=== PATIENT | male | born 1960 | race Native Hawaiian/Other Pacific Islander ===

== ENCOUNTER 2017-10-28 11:58 | Inpatient (IN) | payer OTHER ==
[~2017-10-28] VITALS: Ht 165.1 cm; Wt 78.0 kg
[~2017-10-28 11:58] MED LIST: CEPH500C3 PO; EMPA1TAB3 PO; GLIM4TAB PO; GLUC1000 PO; LORT5TAB PO
[2017-10-28 12:00] VITALS: BP 182/84; PULSE 63; RESP 20; TEMP 97.9; O2SAT 99
--- NOTE | 2017-10-28 12:33 | PD ---
Physical Exam Time Seen by Provider: 12:30 Narrative 57yo M c/o sternal chest pain x 2hours. Intermittent. Denies SOB. Pain is worse with deep breath. No radiation of pain. Denies recent illness illness. Hx diabetes. Denies anticoagulants. Denies N,V. Patient seen in triage. VS reviewed. Awaiting bed placement. See next providers note for final patient disposition. Data Data Last Documented VS Vital Signs Date Time Temp Pulse Resp B/P (MAP) Pulse Ox O2 Delivery O2 Flow Rate FiO2 10/28/17 12:00 97.9 63 20 182/84 (116) 99 Room Air MDM Supervised Visit with CHANDRA: Karla Potts Oct 28, 2017 12:33
[2017-10-28] MEDS ORDERED: SODIUM CHLORIDE 0.9% FLUSH 10 ML FLUSH IVF PRN ×2 (12:45→13:15)
--- NOTE | 2017-10-28 12:56 | RADRPT ---
EXAM DATE/TIME: 10/28/2017 12:47 [facility] COMPARISON: No previous studies available for comparison. INDICATIONS : Chest pain. MEDICAL HISTORY : None. SURGICAL HISTORY : None. ENCOUNTER: Initial ACUITY: 1 day PAIN SCORE: 4/10 LOCATION: Bilateral chest FINDINGS: Single AP view of the chest. The lungs are clear. Cardiomediastinal silhouette within normal limits. No evidence of pleural effusion or pneumothorax. CONCLUSION: No acute cardiopulmonary disease identified. Leo Velazquez MD on October 28, 2017 at 12:53 Board Certified Radiologist. This report was verified electronically.
[2017-10-28 13:07] LABS: AUTOMATED NEUTROPHIL # 4.2 TH/MM3 (1.8-7.7); BASOPHIL % 0.5 % (0.0-2.0); EOSINOPHIL # 0.3 TH/MM3 (0-0.4); EOSINOPHIL % 3.5 % (0.0-4.0); LYMPH % 35.1 % (9.0-44.0); LYMPHOCYTE # 2.8 TH/MM3 (1.0-4.8); MEAN CELL VOLUME 87.9 FL (80.0-100.0); MEAN CORPUSCULAR HEMOGLOBIN 30.5 PG (27.0-34.0); MEAN CORPUSCULAR HGB CONC 34.7 % (32.0-36.0); MEAN PLATELET VOLUME 8.3 FL (7.0-11.0); MONOCYTE # 0.6 TH/MM3 (0-0.9); NEUT % 52.9 % (16.0-70.0); PLATELET COUNT 207 TH/MM3 (150-450); RED BLOOD COUNT 5.24 MIL/MM3 (4.50-5.90); WHITE BLOOD COUNT 7.9 TH/MM3 (4.0-11.0)
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
[2017-10-28] MEDS ORDERED: SODIUM CHLORID 0.9% 500 ML INJ 500 ML IV ONE (13:15)
[2017-10-28] MEDS ORDERED: MORPHINE SULFATE 2 MG/ML INJ IV PUSH ONE (13:15)
[2017-10-28] MEDS ORDERED: GLIM4TAB PO (13:15)
[2017-10-28] MEDS ORDERED: ONDANSETRON HCL 4 MG/2 ML VIAL IV PUSH ONE (13:15)
[2017-10-28] MEDS ORDERED: ASPIRIN 81 MG CHEW TAB PO ONE (13:15)
[2017-10-28] MEDS ORDERED: METF1000 PO (13:15)
[2017-10-28] MEDS ORDERED: EMPA1TAB PO (13:15)
[2017-10-28 13:16] VITALS: BP 165/90; PULSE 56; RESP 21; O2SAT 100
[2017-10-28] MEDS ORDERED: EMPA1TAB3 PO (13:16)
[2017-10-28 13:17] VITALS: O2SAT 99
[2017-10-28 13:17] LABS: BICARBONATE 28.1 MEQ/L (21.0-32.0); BLOOD UREA NITROGEN 14 MG/DL (7-18); CALCIUM 9.8 MG/DL (8.5-10.1); CHLORIDE 105 MEQ/L (98-107); CREATININE 0.91 MG/DL (0.60-1.30); GLOMERULAR FILTRATION RATE 86 ML/MIN (>89); GLUCOSE,RANDOM 129 MG/DL (74-106); MAGNESIUM 2.1 MG/DL (1.5-2.5); SODIUM (NA) 137 MEQ/L (136-145)
[2017-10-28 13:20] LABS: TROPONIN I LESS THAN 0.02 NG/ML (0.02-0.05)
[2017-10-28] MEDS: NITROGLYCERIN 0.4 MG SL 25 TABS/BTL SL SCH ×3 (13:20→13:37)
[2017-10-28 13:22] LABS: PROTHROMBIN TIME - PATIENT 10.3 SEC (9.8-11.6)
[2017-10-28] MEDS ORDERED: IOHEXOL 350 MG/ML 50 ML BTL (for Cath Lab) OTHER ONE (13:57)
[2017-10-28] MEDS ORDERED: ONDANSETRON HCL 4 MG/2 ML VIAL IV PUSH PRN (15:15)
[2017-10-28] MEDS ORDERED: ACETAMINOPHEN 500 MG CPLT PO PRN (15:15)
[2017-10-28] MEDS ORDERED: NITROGLYCERIN 0.4 MG SL 25 TABS/BTL SL PRN (15:15)
[2017-10-28 15:33] VITALS: O2SAT 99
--- NOTE | 2017-10-28 16:24 | HHI.HP ---
HPI Primary Care Physician Venancio Bailey MD Chief Complaint Chest pain History of Present Illness 57 year old male with history of Type 2 noninsulin diabetes presents to ER for further evaluation of chest pain. Awakening at 5am, feeling fine, completed morning prayer, followed by breakfast at 6am. Decided to go back to sleep, awakening around 1030am. Upon awakening experience quick onset, sharp epigastric pain. Radiation "straight up" (pointing from epigastric area to midsternum). No associated symptoms of nausea, vomiting, dyspnea, or diaphoresis. Duration waxed and waned in intensity for approximately 1.5 hours. Hurt to take a deep breath during this time. Denies similar pain in the past. No known precipitating or relieving factors. Endorses he physically active and attempted exercising on treadmill in hopes discomfort would resolve. Discomfort worsen while on treadmill, therefore stopped exercising. Notified his son (who is a medical student) who instructed father to come to ER for further evaluation. Currently discomfort has completed resolved. Review of Systems General: No fatigue,weakness, fever, chills, recent illness, or change in appetite. Has been in his general state of health, reporting he "never gets sick." HEENT: No DOWNING, no vision changes, no nasal congestion or drainage, no dysphasia CV: As stated above. No current chest pain or pressure. No intermittent leg pain RESP: No SOB, cough, wheeze, or recent respiratory illness GI: No nausea, vomiting, bowel changes, or history of acid reflex. : No dysuria, urgency, frequency. History of kidney stones EXT: No lower leg edema, no paraesthesias MS: No discomfort, change in ROM, injury, or recent trauma. NEURO: No change in memory, dizziness, difficulty with balance, LOC, motor/ sensory deficits PSYCH: No anxiety, depression SKIN: No rashes, no concerning lesions Past Family Social History Allergies: Coded Allergies: No Known Allergies (Unverified Allergy, Unknown, 10/28/17) Past Medical History Diabetes type 2 (non-insulin dependent), gallstones, kidney stones Past Surgical History Cholecystectomy, lithotripsies Reported Medications Reported Meds & Active Scripts Active Reported Jardiance (Empagliflozin) 25 Mg Tab 25 Mg PO DAILY Glimepiride 4 Mg Tab 4 Mg PO BIDAC Metformin (Metformin HCl) 1,000 Mg Tab 1,000 Mg PO BIDPC Denies being on an CHEYANNE inhibitor or a cholesterol medication Active Ordered Medications Current Medications Medications (Trade) Dose Ordered Sig/Shereen Route Start Time Stop Time Status Last Admin (NS Flush) 2 ml UNSCH PRN IVF 10/28/17 12:45 (NS Flush) 2 ml UNSCH PRN IVF 10/28/17 13:15 (Tylenol) 500 mg Q4H PRN PO 10/28/17 15:15 (Zofran Inj) 4 mg Q6H PRN IV PUSH 10/28/17 15:15 (Nitrostat Sl) 0.4 mg Q5M PRN SL 10/28/17 15:15 (Aspirin) 325 mg DAILY PO 10/29/17 09:00 Family History Noncontributory for early onset cardiovascular disease. Social History Known diabetes. Denies CAD, hypertension or hyperlipidemia. Denies ever taking a cholesterol medication. Lifelong nonsmoker. Denies any alcohol or illegal drug use. . 2 grown sons. 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 Endorses active lifestyle, exercises on treadmill for approx. 20 minutes nightly. Past cardiac testing None Physical Exam Vital Signs Vital Signs Date Time Temp Pulse Resp B/P (MAP) Pulse Ox O2 Delivery O2 Flow Rate FiO2 10/28/17 13:17 (115) 99 Room Air 10/28/17 13:16 56 21 165/90 (115) 100 10/28/17 13:00 18 Room Air 10/28/17 12:00 97.9 63 20 182/84 (116) 99 Room Air Physical Exam GENERAL: Alert WN, WD, NAD, very pleasant, male. HEAD: NC, AT EYES: Sclera clear, conjunctiva without injection, pupils equal and round ENT: Mucous membranes pink and moist NECK: Supple, no masses, trachea midline CV: Regular bradycardiac rhythm, without murmur, rub, gallop, no JVD, S1-S2 no S3-S4. No carotid bruits. Chest wall nontender with palpation. RESP: Clear lungs throughout bilateral, no crackles, wheeze, rhonchi, symmetrical chest rise, nonlabored, able to speak in full sentences ABD: Soft, NT, ND, no masses, positive bowel tones EXT: Pulses +24, no dependent edema MS: Normal tone 4 extremities, nontender, no obvious deformities, full range of motion NEURO: CN II through CN XII grossly intact, motor strength 5/5 PSYCH: A+O 3, pleasant affect, appropriate speech, mood, insight and judgment SKIN: Normal turgor, normal texture, no lesions, no rashes, brisk cap refill, even hair distribution Laboratory Laboratory Tests Test 10/28/17 12:42 White Blood Count 7.9 Red Blood Count 5.24 Hemoglobin 16.0 Hematocrit 46.0 Mean Corpuscular Volume 87.9 Mean Corpuscular Hemoglobin 30.5 Mean Corpuscular Hemoglobin Concent 34.7 Red Cell Distribution Width 14.0 Platelet Count 207 Mean Platelet Volume 8.3 Neutrophils (%) (Auto) 52.9 Lymphocytes (%) (Auto) 35.1 Monocytes (%) (Auto) 8.0 Eosinophils (%) (Auto) 3.5 Basophils (%) (Auto) 0.5 Neutrophils # (Auto) 4.2 Lymphocytes # (Auto) 2.8 Monocytes # (Auto) 0.6 Eosinophils # (Auto) 0.3 Basophils # (Auto) 0.0 CBC Comment DIFF FINAL Differential Comment Prothrombin Time 10.3 Prothromb Time International Ratio 1.0 Activated Partial Thromboplast Time 29.4 Blood Urea Nitrogen 14 Creatinine 0.91 Random Glucose 129 Calcium Level 9.8 Magnesium Level 2.1 Sodium Level 137 Potassium Level 4.3 Chloride Level 105 Carbon Dioxide Level 28.1 Anion Gap 4 Estimat Glomerular Filtration Rate 86 Total Creatine Kinase 643 Creatine Kinase MB 6.0 Creatine Kinase MB % 0.9 Troponin I LESS THAN 0.02 Result Diagram: 10/28/17 1242 10/28/17 1242 Imaging Last 48 hours Impressions Chest X-Ray 10/28/17 1233 Signed Impressions: Service Date/Time: Saturday, October 28, 2017 12:47 - CONCLUSION: No acute cardiopulmonary disease identified. Leo Velazquez MD Course EKG NSB, normal axis, J point elevation V1, V2, V3 may represent early repolarization Caprini VTE Risk Assessment Caprini VTE Risk Assessment: No/Low Risk (score <= 1) Caprini Risk Assessment Model Point Value = 1 Point Value = 2 Point Value = 3 Point Value = 5 Age 41-60 Minor surgery BMI > 25 kg/m2 Swollen legs Varicose veins or History of unexplained or recurrent spontaneous Oral contraceptives or hormone replacement Sepsis (< 1 month) Serious lung disease, including pneumonia (< 1 month) Abnormal pulmonary function Acute myocardial infarction Congestive heart failure (< 1 month) History of inflammatory bowel disease Medical patient at bed rest Age 61-74 Arthroscopic surgery Major open surgery (> 45 min) Laparoscopic surgery (> 45 min) Malignancy Confined to bed (> 72 hours) Immobilizing plaster cast Central venous access Age >= 75 History of VTE Family history of VTE Factor V Leiden Prothrombin [id number] Lupus anticoagulant Anticardiolipin antibodies Elevated serum homocysteine Heparin-induced thrombocytopenia Other congenital or acquired thrombophilia Stroke (< 1 month) Elective arthroplasty Hip, pelvis, or leg fracture Acute spinal cord injury (< 1 month) Prophylaxis Regimen Total Risk Factor Score Risk Level Prophylaxis Regimen 0-1 Low Early ambulation 2 Moderate Order ONE of the following: *Sequential Compression Device (SCD) *Heparin 5000 units SQ BID 3-4 Higher Order ONE of the following medications: *Heparin 5000 units SQ TID *Enoxaparin/Lovenox 40 mg SQ daily (WT < 150 kg, CrCl > 30 mL/min) *Enoxaparin/Lovenox 30 mg SQ daily (WT < 150 kg, CrCl > 10-29 mL/min) *Enoxaparin/Lovenox 30 mg SQ BID (WT < 150 kg, CrCl > 30 mL/min) AND/OR *Sequential Compression Device (SCD) 5 or more Highest Order ONE of the following medications: *Heparin 5000 units SQ TID (Preferred with Epidurals) *Enoxaparin/Lovenox 40 mg SQ daily (WT < 150 kg, CrCl > 30 mL/min) *Enoxaparin/Lovenox 30 mg SQ daily (WT < 150 kg, CrCl > 10-29 mL/min) *Enoxaparin/Lovenox 30 mg SQ BID (WT < 150 kg, CrCl > 30 mL/min) AND *Sequential Compression Device (SCD) Assessment and Plan Assessment and Plan #1 Chest pain-admitted to chest pain center. Serial EKGs and cardiac enzymes protocol ordered. Will be seen and evaluated by Dr Dallas Dickson. Discussed possible cardiac testing after assessment by jewel stripper and further orders. Patient is agreeable to plan of care. #2 Diabetes type 2 non-insulin dependent-encouraged him to discuss with his primary care provider starting on an CHEYANNE inhibitor and Statin therapy per current recommended diabetic guidelines, education on how and why both medications are beneficial. Will reinforce upon discharge. 1800-Exercise stress testing positive for significant ST depressions inferiorly , anterolaterally at peak and minimal st depressions in recovery. Dr. Dickson aware and also reviewed stress test. Admit to hospitalist and cardiology diamond polisher. Due to patient bradycardiac rhythm will not order nitro paste or beta dionne at this time. Discussed plan of care with patient and family. All agreeable to plan of care. Leah Cameron Oct 28, 2017 16:24
--- NOTE | 2017-10-28 17:02 | PD.CARD.PN ---
Subjective Subjective Remarks PATIENT SEEN AND EXAMINED AND DISCUSSED WITH RETAIL CUSTOMER SERVICE SPECIALIST Chest pain as described in hard working man with diabetes, HTN and probable hyperlipidemia. Exercises regularly so fit for ETT Objective Medications Current Medications Medications (Trade) Dose Ordered Sig/Shereen Route Start Time Stop Time Status Last Admin (NS Flush) 2 ml UNSCH PRN IVF 10/28/17 12:45 (NS Flush) 2 ml UNSCH PRN IVF 10/28/17 13:15 (Tylenol) 500 mg Q4H PRN PO 10/28/17 15:15 (Zofran Inj) 4 mg Q6H PRN IV PUSH 10/28/17 15:15 (Nitrostat Sl) 0.4 mg Q5M PRN SL 10/28/17 15:15 (Aspirin) 325 mg DAILY PO 10/29/17 09:00 Vital Signs / I&O Vital Signs Date Time Temp Pulse Resp B/P (MAP) Pulse Ox O2 Delivery O2 Flow Rate FiO2 10/28/17 13:17 (115) 99 Room Air 10/28/17 13:16 56 21 165/90 (115) 100 10/28/17 13:00 18 Room Air 10/28/17 12:00 97.9 63 20 182/84 (116) 99 Room Air Physical Exam Neck without JVD or bruits Chest Clear to auscultation with no RWR CV RSR with no GRM Ext no CCE EKG probably early repol and no change from prior Labs reviewed Laboratory Laboratory Tests Test 10/28/17 12:42 10/28/17 16:10 White Blood Count 7.9 TH/MM3 Red Blood Count 5.24 MIL/MM3 Hemoglobin 16.0 GM/DL Hematocrit 46.0 % Mean Corpuscular Volume 87.9 FL Mean Corpuscular Hemoglobin 30.5 PG Mean Corpuscular Hemoglobin Concent 34.7 % Red Cell Distribution Width 14.0 % Platelet Count 207 TH/MM3 Mean Platelet Volume 8.3 FL Neutrophils (%) (Auto) 52.9 % Lymphocytes (%) (Auto) 35.1 % Monocytes (%) (Auto) 8.0 % Eosinophils (%) (Auto) 3.5 % Basophils (%) (Auto) 0.5 % Neutrophils # (Auto) 4.2 TH/MM3 Lymphocytes # (Auto) 2.8 TH/MM3 Monocytes # (Auto) 0.6 TH/MM3 Eosinophils # (Auto) 0.3 TH/MM3 Basophils # (Auto) 0.0 TH/MM3 CBC Comment DIFF FINAL Differential Comment Prothrombin Time 10.3 SEC Prothromb Time International Ratio 1.0 RATIO Activated Partial Thromboplast Time 29.4 SEC Blood Urea Nitrogen 14 MG/DL Creatinine 0.91 MG/DL Random Glucose 129 MG/DL Calcium Level 9.8 MG/DL Magnesium Level 2.1 MG/DL Sodium Level 137 MEQ/L Potassium Level 4.3 MEQ/L Chloride Level 105 MEQ/L Carbon Dioxide Level 28.1 MEQ/L Anion Gap 4 MEQ/L Estimat Glomerular Filtration Rate 86 ML/MIN Total Creatine Kinase 643 U/L Creatine Kinase MB 6.0 NG/ML Creatine Kinase MB % 0.9 % Troponin I LESS THAN 0.02 NG/ML Imaging Last 24 hours Impressions Chest X-Ray 10/28/17 1233 Signed Impressions: Service Date/Time: Saturday, October 28, 2017 12:47 - CONCLUSION: No acute cardiopulmonary disease identified. Leo Velazquez MD Assessment and Plan Problem List: (1) Chest pain in adult ICD Codes: R07.9 - Chest pain, unspecified Status: Acute Plan: Remains pain free and anxious to get home. Will ETT with second set of negative enzymes. Needs OP FU for diabetes, HTN and lipids Dallas Dickson MD Oct 28, 2017 17:02
[2017-10-28 17:07] LABS: TROPONIN I LESS THAN 0.02 NG/ML (0.02-0.05)
[2017-10-28 18:14] VITALS: BP 118/73; PULSE 88; RESP 20; TEMP 98.6; O2SAT 98
[2017-10-28] MEDS ORDERED: DEXTROSE 50% IN WATER 50 ML VIAL(D50) IV PUSH PRN (18:15)
[2017-10-28] MEDS ORDERED: GLUCAGON 1 MG/ML VIAL OTHER PRN (18:15)
[2017-10-28 19:13] LABS: TROPONIN I LESS THAN 0.02 NG/ML (0.02-0.05)
[2017-10-28] MEDS: INSULIN ASPART SUPPLEMENTAL SCALE SQ SCH (20:02)
[2017-10-28] MEDS: PANTOPRAZOLE SOD 40 MG DELAYED RELEASE TAB PO SCH (20:07)
[2017-10-28 20:51] VITALS: BP 133/73; PULSE 68; RESP 18; TEMP 98; O2SAT 98
[2017-10-29] VITALS (12 sets, daily range): BP systolic 119–159; BP diastolic 61–86; PULSE 51–75; RESP 16–18; TEMP 96.2–98.7; O2SAT 94–98
--- NOTE | 2017-10-29 07:43 | PD.CONS ---
HPI Service cardiology Consult Requested By Reason for Consult chest pain Primary Care Physician Venancio Bailey MD History of Present Illness 57 year old male with history of Type 2 noninsulin diabetes presents to ER for further evaluation of chest pain. Awakening at 5am, feeling fine, completed morning prayer, followed by breakfast at 6am. Decided to go back to sleep, awakening around 1030am. Upon awakening experience quick onset, sharp epigastric pain. Radiation "straight up" (pointing from epigastric area to midsternum). No associated symptoms of nausea, vomiting, dyspnea, or diaphoresis. Duration waxed and waned in intensity for approximately 1.5 hours. Hurt to take a deep breath during this time. Denies similar pain in the past. No known precipitating or relieving factors. Endorses he physically active and attempted exercising on treadmill in hopes discomfort would resolve. Discomfort worsen while on treadmill, therefore stopped exercising. Notified his son (who is a medical student) who instructed father to come to ER for further evaluation. Currently discomfort has completed resolved. Review of Systems Consitutional: DENIES: Fatigue, Fever, Chills, Weight gain, Weight loss Respiratory: DENIES: Cough, Snoring, Shortness of breath, Wheezing, Sputum production Cardiovascular: DENIES: Palpitations, Syncope, Tachycardia Gastrointestinal: DENIES: Nausea, Vomiting, Change in bowel habits, Reflux, Bloody stools, Melena Past Family Social History Allergies: Coded Allergies: No Known Allergies (Unverified Allergy, Unknown, 10/28/17) Past Medical History DMII Past Surgical History Cholecystectomy, lithotripsies Reported Medications Reported Meds & Active Scripts Active Reported Jardiance (Empagliflozin) 25 Mg Tab 25 Mg PO DAILY Glimepiride 4 Mg Tab 4 Mg PO BIDAC Metformin (Metformin HCl) 1,000 Mg Tab 1,000 Mg PO BIDPC Active Ordered Medications Current Medications Medications (Trade) Dose Ordered Sig/Shereen Route Start Time Stop Time Status Last Admin (NS Flush) 2 ml UNSCH PRN IVF 10/28/17 12:45 (NS Flush) 2 ml UNSCH PRN IVF 10/28/17 13:15 (Tylenol) 500 mg Q4H PRN PO 10/28/17 15:15 (Zofran Inj) 4 mg Q6H PRN IV PUSH 1/14/18 15:15 (Nitrostat Sl) 0.4 mg Q5M PRN SL 10/28/17 15:15 (Aspirin) 325 mg DAILY PO 10/29/17 09:00 (D50w (Vial) Inj) 50 ml UNSCH PRN IV PUSH 10/28/17 18:15 (Glucagon Inj) 1 mg UNSCH PRN OTHER 10/28/17 18:15 (NovoLOG SUPPLEMENTAL SCALE) 1 ACHS SLIDING SCALE SQ 10/28/17 21:00 (Protonix) 40 mg DAILY PO 10/28/17 18:30 10/28/17 20:07 Family History non-contributory Social History no tobacco, etoh or illicit drug use Physical Exam Vital Signs Vital Signs Date Time Temp Pulse Resp B/P (MAP) Pulse Ox O2 Delivery O2 Flow Rate FiO2 10/29/17 07:34 98.4 59 18 130/72 (91) 97 10/29/17 05:19 98.7 64 18 138/74 (95) 94 10/29/17 00:17 98.0 67 18 127/61 (83) 97 10/28/17 20:51 98.0 68 18 133/73 (93) 98 10/28/17 18:14 98.6 88 20 118/73 (88) 98 10/28/17 17:22 (115) 10/28/17 15:33 99 21 10/28/17 13:17 (115) 99 Room Air 10/28/17 13:16 56 21 165/90 (115) 100 10/28/17 13:00 18 Room Air 10/28/17 12:00 97.9 63 20 182/84 (116) 99 Room Air Physical Exam GENERAL: SKIN: Warm and dry. HEAD: Atraumatic. Normocephalic. EYES: Pupils equal and round. ENT: No nasal bleeding or discharge. NECK: Trachea midline. No JVD. CARDIOVASCULAR: Regular rate and rhythm. no murmurs RESPIRATORY: No accessory muscle use. Clear to auscultation. Breath sounds equal bilaterally. GASTROINTESTINAL: Abdomen soft, non-tender, nondistended. Hepatic and splenic margins not palpable. MUSCULOSKELETAL: Extremities without clubbing, cyanosis, or edema. No obvious deformities. NEUROLOGICAL: Awake and alert. No obvious cranial nerve deficits. . Normal speech. PSYCHIATRIC: Appropriate mood and affect; insight and judgment normal. Laboratory Laboratory Tests Test 10/28/17 12:42 10/28/17 16:10 10/28/17 18:35 White Blood Count 7.9 Red Blood Count 5.24 Hemoglobin 16.0 Hematocrit 46.0 Mean Corpuscular Volume 87.9 Mean Corpuscular Hemoglobin 30.5 Mean Corpuscular Hemoglobin Concent 34.7 Red Cell Distribution Width 14.0 Platelet Count 207 Mean Platelet Volume 8.3 Neutrophils (%) (Auto) 52.9 Lymphocytes (%) (Auto) 35.1 Monocytes (%) (Auto) 8.0 Eosinophils (%) (Auto) 3.5 Basophils (%) (Auto) 0.5 Neutrophils # (Auto) 4.2 Lymphocytes # (Auto) 2.8 Monocytes # (Auto) 0.6 Eosinophils # (Auto) 0.3 Basophils # (Auto) 0.0 CBC Comment DIFF FINAL Differential Comment Prothrombin Time 10.3 Prothromb Time International Ratio 1.0 Activated Partial Thromboplast Time 29.4 Blood Urea Nitrogen 14 Creatinine 0.91 Random Glucose 129 Calcium Level 9.8 Magnesium Level 2.1 Sodium Level 137 Potassium Level 4.3 Chloride Level 105 Carbon Dioxide Level 28.1 Anion Gap 4 Estimat Glomerular Filtration Rate 86 Total Creatine Kinase 643 432 590 Creatine Kinase MB 6.0 4.1 4.7 Creatine Kinase MB % 0.9 0.9 0.8 Troponin I LESS THAN 0.02 LESS THAN 0.02 LESS THAN 0.02 Lipase 812 Result Diagram: 10/28/17 1242 10/28/17 1242 Imaging Last 48 hours Impressions Chest X-Ray 10/28/17 1233 Signed Impressions: Service Date/Time: Saturday, October 28, 2017 12:47 - CONCLUSION: No acute cardiopulmonary disease identified. Leo Velazquez MD Assessment and Plan Problem List: (1) Chest pain in adult ICD Codes: R07.9 - Chest pain, unspecified Status: Acute Assessment and Plan 57 year old male with history of Type 2 noninsulin diabetes presents to ER for further evaluation of chest pain chest pain- abnormal ETT test yesterday. remains asymptomatic will plan for c today. keep npo Yamileth Wells Oct 29, 2017 07:43
[2017-10-29] MEDS: INSULIN ASPART SUPPLEMENTAL SCALE SQ SCH ×3 (08:00→21:24)
[2017-10-29] MEDS: ASPIRIN 325 MG TAB PO SCH (10:49)
[2017-10-29] MEDS: PANTOPRAZOLE SOD 40 MG DELAYED RELEASE TAB PO SCH (10:49)
[2017-10-29] MEDS ORDERED: HEPARIN-NS/PF INJ 500 ML ONE (11:29)
[2017-10-29] MEDS ORDERED: MIDAZOLAM HCL 2 MG/2 ML VIAL ONE (11:35)
[2017-10-29] MEDS ORDERED: BACITRACIN OINT 0.9 GM PKT TOP ONE (12:00)
[2017-10-29] MEDS ORDERED: MISC INFORMATION XX ONE (12:00)
[2017-10-29] MEDS ORDERED: HEPARIN SODIUM - IV 10,000 UNITS/10 ML VIAL ONE (12:01)
--- NOTE | 2017-10-29 12:08 | CATHPROC ---
[employer] HIS Report Study Information Study Number Admission Scheduled Start Study Start [id number] Oct 28 2017 1:56PM 10/29/2017 Oct 29 2017 11:19AM [facility] Cardiac Catheterization Admit Source Facility Department Emergency department [facility] - User Interface Engineer Physician and Clinical Staff Initial Wyatt Arndt Consulting PsychologistLilibeth Esteban RN Consulting PsychologistStephanie Hill RN Other cathlab, cathlab Recorder Macey Faustin,QUALITY ASSURANCE COACH TECH2 Scrub Kayley Kapoor,RT(R) Procedures Performed Procedure Location (Site) Vessel Name Angiogram LV LV Ventricle Coronary Angiograms LCA Left Coronary Coronary Angiograms RCA Right Coronary Coronary Angiograms PATRICK PATRICK Equipment Time Manufacturing Plant Controller Description Size Mfg Part Number Used/Scraped TRANSDUCER, TRUWAVE [id number] 11:24 [employer] [place]ORD * Used W/STOCKCOCK *[id number] *[id number] *[id number] *[id number] 11:24 [employer] PACK, CCL CUSTOM * Used *[id number] 11:24 [employer] SUPPORT, ARTERIAL ADULT 86710 *[id number] Used [id number] 11:24 [employer] PACER PEN, SKIN DUAL W/ RULER * Used *[id number] BAND, RADIAL COMPRESSION TR [id number] 11:57 Mini[employer] 24CM Used SHORT 24 *[id number] SHEATH, FR6 RADIAL PRELUDE 11:24 Mini[employer] FR 6 [id number] Used EASE 11CM [id number] 11:24 [employer] WIRE, EXCHANGE 260CM 3MMJ 260CM Used *[id number] 11:24 [employer] OMNIPAQUE, 350 MG, 150ML 150ML [id number] Used [id number] 11:24 [employer]yl[employer] BLANKET,WARM AIR CCL * Used *[id number] History: Current Medications Medication Dosage/Unit Route Frequency Last Date/Time Taken ASA History: Allergies Allergy Reaction No Known Allergies History: Risk Factors Family History of Hypertension Dyslipidemia Previous NV Previous Heart Failure Premature CAD No No No No No Prior Valve Prior PCI Prior CABG Surgery No No No Cerebrovascular Peripheral Artery Chronic Lung On Dialysis Diabetes Disease Disease Disease No No No No No History: Symptoms/Diagnosis Selection Items Chest pain History: Stress Tests Stress or Imaging Studies Performed Yes Standard Exercise Stress Test No Stress Echo No Stress Test SPECT Stress Test SPECT Result Yes Positive Stress Test CMR No Cardiac CTA Coronary Calcium Score No No History: Other Disease Selection Items HTN History: Other Current Smoker No Labs Hgb (g/dl) Hct (%) WBC (l/cumm) Platelets (thousands) 11.60-17.00 35.00-51.00 4.00-11.00 150.00-450.00 16.0 46 5.2 207 Glucose (mg/dl) BUN (mg/dl) Creatinine (mg/dl) BUN:Creatinine (1:x) 74.00-106.00 7.00-18.00 0.50-1.30 10.00-20.00 136 14 0.9 15.6 Na (meq/l) K (meq/l) 136.00-145.00 3.50-5.10 137 4.3 INR (PTT:PT) 0.90-1.10 1 Troponin I (ng/ml) CPK (u/l) CPK-MB (ng/ML) 0.02-0.05 26.00-308.00 0.50-3.60 0.02 590 0.8 Medication Medication Total Dose (Bolus/Oral) Medication Total Dosage/Unit 1% XYLOCAINE 3 mL FENTANYL 50 mcg HEPARIN 3000 units NTG (IC) 200 mcg VERSED 2 mg Medications (Bolus/Oral) Medication Time Given Dosage/Unit Administered By Reason VERSED 10/29/2017 11:38:30 AM 2 mg cathlab, cathlab Patient arrived on 2 mg VERSED given by cathlab, cathlab via Peripheral IV. Ordered by Wyatt Cardozo . FENTANYL 10/29/2017 11:39:21 AM 50 mcg Patient arrived on 50 mcg FENTANYL via Peripheral IV. Ordered by Wyatt Cardozo. 1% XYLOCAINE 10/29/2017 11:41:06 AM 3 mL Wyatt Cardozo 3 mL 1% XYLOCAINE given in lab by Wyatt Cardozo in Right Radial via Subcutaneous. Ordered by Wyatt Cardozo. NTG (IC) 10/29/2017 11:41:34 AM 200 mcg Wyatt Cardozo 200 mcg NTG (IC) given in lab by Wyatt Cardozo in Right Radial via Intra-arterial. Ordered by Wyatt Cardozo. HEPARIN 10/29/2017 11:44:58 AM 3000 units Stephanie Samuel 3000 units HEPARIN given in lab by Stephanie Samuel, KATRIN via Peripheral IV. Ordered by Wyatt Cardozo. Medication (Drip) Medication Time Given Dosage/Unit Concentration/Unit Diluent (ml) Solution IV Solutions 10/29/2017 11:21:44 AM 0 mL (IV) 500 NaCl .9 Patient arrived on IV Solutions given by cathlab, cathlab in Right Antecubital via Peripheral IV. Pum p/Drip Flow = 20 ml/hr using NaCl .9. Ordered by Wyatt Cardozo. Initial Case Assessment Cardiovascular HR Rhythm NIBP Chest Pain 56 nsr 162/85 0 Edema Present Skin color Skin None Normal Warm Dry Circulatory - Right Pulses Dorsalis Pedis Femoral Radial 2 3 3 Scale (0,1,2,3,4,d) Circulatory - Left Pulses Dorsalis Pedis Femoral Radial 2 3 Scale (0,1,2,3,4,d) Neurological State Oriented to time-place- Alert Moves all extremities person Respiration - General Respiration Rate SpO2 (%) (B/min) 16 98 Chronological Log Time Study Chronological Log 11:20:41 Patient arrived via Bed. 11:20:41 Patient Name, D.O.B, / Armband Verified By R.N. 11:20:42 Consent signed by the physician and the patient and verified by the User Interface Engineer staff. 11:20:44 Patient has been NPO for More than 6Hrs. 11:20:45 NO Skin Breakdown- NONE PER PATIENT 11:21:41 Patient Warmer Placed on the Table. 11:21:42 Eben Prominences Protected 11:21:43 A # 20 IV was noted in the Antecubital (right). Grade = 0 Patient arrived on IV Solutions given by cathlab, cathlab in Right Antecubital via Peripheral I V. Pump/Drip Flow = 20 11:21:44 ml/hr using NaCl .9. Ordered by Wyatt Cardozo. 11:21:44 History and physical on the chart or being dictated. Assessment: Initial Case, HR=56 BPM, Rhythm=nsr, BKCU=431/85 mmhg, Chest Pain=0, Edema=None, Co channing=Normal, Skin = Warm, Dry Right Pulses: Henry Ped=2, Femoral=3, Radial=3 11:24:45 Left Pulses: Henry Ped=2, Femoral=3 Neurological: State=Alert, Ox3, HANSEN Respiration: Resp=16 B/min, SpO2=98 % 11:29:53 MD arrived. 11:31:00 Allens test performed on the right radial and ulnar artery. POSITIVE. Vitals capture started with the following parameters, Patient=Adult, Interval=5 min, Initial Pr vnrehx=574 mmHg, 11:31:24 Deflation Rate=5 mmHg, Cuff placed on Left Arm 11:31:39 Reference ECG taken 11:32:37 HR=57 bpm, OVJS=849/85 mmhg, Resp=17 B/min, Pain=0, Shaan=10, Guadalupe=2 11:36:50 Right groin prepped with 2% chlorhexidine, and draped after a 3 min. waiting time. 11:37:05 HR=59 bpm, XGWA=191/87 mmhg, HjT8=411.0 %, Resp=20 B/min, Pain=0, Shaan=10, Guadalupe=2 11:38:20 The Physician was on time. 11:38:30 Patient arrived on 2 mg VERSED given by cathlab, cathlab via Peripheral IV. Ordered by Wyatt Colmenares. 11:39:21 Patient arrived on 50 mcg FENTANYL via Peripheral IV. Ordered by Wyatt Cardozo. Time Out. Correct patient, correct procedure, correct physician, power injector loaded, with co ntrast with surgical team 11:39:36 present. Time Out Concurred by MD and individual staff in procedure. 11:39:51 Case Start 11:41:06 3 mL 1% XYLOCAINE given in lab by Wyatt Cardozo in Right Radial via Subcutaneous. Ordered by Wyatt Cardozo. 11:41:18 Access site was Right Radial Artery. 11:41:21 Pressure channel 1 zeroed. 11:41:34 200 mcg NTG (IC) given in lab by Wyatt Cardozo in Right Radial via Intra-arterial. Ordered by Wyatt Cardozo. 11:41:55 A sheath was advanced into the Radial (right) using the Percutaneous technique. 11:42:06 HR=62 bpm, IGWA=452/88 mmhg, SpO2=98.0 %, Resp=8 B/min, Pain=0, Shaan=10, Guadalupe=2 A JR 5.0 INFINITI CATHETER FR 5 was advanced over a wire. OMNIPAQUE, 350 MG, 150ML 150ML was us ed for 11:42:32 injections. Recorded Pressure: LV, HR=66, Condition=Condition 1 11:43:16 (Left Ventricle) LV 134/2/7 Recorded Pressure: LV, Ao, HR=65, Condition=Condition 1 11:43:32 (Left Ventricle) LV 128/3/8, (Aorta) Ao 135/73/100 Recorded Pressure: Ao, HR=59, Condition=Condition 1 11:43:59 (Aorta) Ao 119/64/88 11:44:28 The RCA was injected and visualized at various angles. OMNIPAQUE, 350 MG, 150ML 150ML used . 11:44:58 3000 units HEPARIN given in lab by Stephanie Samuel, KATRIN via Peripheral IV. Ordered by Wyatt Cardozo. 11:46:45 Catheter was removed 11:47:05 HR=65 bpm, GFLG=561/77 mmhg, SpO2=95.0 %, Resp=12 B/min, Pain=0, Shaan=10, Guadalupe=2 A JL 3.5 INFINITI CATHETER FR 5 was advanced over a wire. OMNIPAQUE, 350 MG, 150ML 150ML was us ed for 11:47:47 injections. 11:47:54 The LCA was injected and visualized at various angles. OMNIPAQUE, 350 MG, 150ML 150ML used . After removing the current catheter a JR 5.0 INFINITI CATHETER FR 5 was advanced over a WIRE, E XCHANGE 260CM 11:48:51 3MMJ 260CM. 11:51:06 The PATRICK was injected and visualized at various angles. OMNIPAQUE, 350 MG, 150ML 150ML used . 11:52:04 HR=64 bpm, BTMC=505/72 mmhg, SpO2=95.0 %, Resp=14 B/min, Pain=0, Shaan=10, Guadalupe=2 After removing the current catheter a PIGTAIL ANG. INFINITI CATHETER FR 5 was advanced over a W [place], EXCHANGE 11:53:22 260CM 3MMJ 260CM. 11:54:38 The LV was injected at 10 cc/sec for a total of 30. OMNIPAQUE, 350 MG, 150ML 150ML used. 11:57:03 HR=71 bpm, UQOC=745/79 mmhg, SpO2=95 %, Resp=15 B/min, Pain=0, Shaan=10, Guadalupe=2 11:58:50 Catheter was removed 12:00:43 Case End 12:02:04 HR=67 bpm, OAXC=112/81 mmhg, Resp=10 B/min, Pain=0, Shaan=10, Guadalupe=2 Radial Compression Device Used. 9 mLs of air placed in BAND, RADIAL COMPRESSION TR SHORT 24 24C M. Affected 12:02:24 hand 97 % O2 saturation. 12:03:06 Vitals capture stopped. 12:03:12 No case complications noted. End Study - Contrast Media Used In Study Contrast Total Opened (mL) Total Used (mL) Total Wasted (mL) Omnipaque 50 50 0 End Study - Maximum Contrast Load Max Contrast Load (mL) 405.6 End Study - Radiation Exposure Fluoro Time (minutes) 4.0 End Study - Patient Disposition Complications Transferred To No User Interface Engineer Holding
--- NOTE | 2017-10-29 12:19 | MA ---
cc: BASSAM PRIDE DATE 10/29/2017 PROCEDURE PERFORMED 1. Fluoroscopy with interpretation. 2. Coronary angiography. 3. Left heart catheterization. 4. Left ventriculography. 5. Left upper extremity angiography. METHOD The risks, benefits and alternatives were discussed with the patient. The patient understood and consented to the procedure. The patient was brought into the catheterization lab and placed on the catheterization table. The right wrist was prepped and draped in a sterile fashion. The right wrist was anesthetized with 2% lidocaine. The right radial artery was cannulated and a 6 Mongolian, 7 cm sheath was placed without difficulty. LEFT HEART CATHETERIZATION Intraventricular hemodynamics measured 128/3 mmHg. LEFT VENTRICULOGRAPHY The left ventriculography was performed in a right anterior oblique view using a 5 Mongolian angled pigtail catheter and a 30 cc contrast injection with good opacification. Left ventricular ejection fraction was visually estimated at 65% without regional wall motion abnormalities. CORONARY ANGIOGRAPHY 1. The left main coronary has minor luminal irregularities. 2. The left anterior descending coronary has a 70% proximal stenosis. There is moderate size diagonal branch with a 90% stenosis. The remainder of the left anterior descending coronary has mild luminal irregularities. 3. The left circumflex gives rise to a ramus intermedius branch with a small to moderate caliber size with a 90% stenosis. The circumflex proper is a co-dominant vessel giving rise to a posterior descending branch. The left posterior descending branch has minor luminal irregularities. 4. The right coronary is a co-dominant vessel giving rise to a posterior descending branch. The mid right coronary has a 90% stenosis. The distal right coronary has a 99% stenosis. The posterior descending branch has minor luminal irregularities. LEFT UPPER EXTREMITY ANGIOGRAPHY The left subclavian is selectively engaged. The left internal mammary is widely patent. CONCLUSIONS 1. Severe three-vessel [place] coronary artery disease. 2. Normal left-sided filling pressure and left ventricular systolic function. 3. Patent left internal mammary artery. PLAN Given the multivessel coronary artery disease and normal left ventricular systolic function, I think he would be a good candidate for coronary bypass surgery. Will consult cardiothoracic surgery for consideration of bypass. MD DEB Monten[place]/MONICA /11:58 AM /12:05 PM
[2017-10-29] MEDS ORDERED: LORazepam 2 MG/ML VIAL IV PUSH PRN (13:30)
--- NOTE | 2017-10-29 15:19 | EKG ---
Date Performed: 10/28/2017 Time Performed: 18:02:52 PTAGE: 57 years EKG: Sinus rhythm ST DEVIATION AND MODERATE T-WAVE ABNORMALITY, CONSIDER LATERAL ISCHEMIA ABNORMAL ECG PREVIOUS TRACING : 10/28/2017 16.25 Since previous tracing, st changes are more prominent. Limb reversal on previous ECG DOCTOR: Virgil Corea Interpretating Date/Time 10/29/2017 15:18:08
--- NOTE | 2017-10-29 15:22 | EKG ---
Date Performed: 10/28/2017 Time Performed: 16:25:10 PTAGE: 57 years EKG: SINUS BRADYCARDIA ARM LEADS REVERSED BORDERLINE ECG PREVIOUS TRACING : 10/28/2017 12.38 DOCTOR: Virgil Corea Interpretating Date/Time 10/29/2017 15:20:36
--- NOTE | 2017-10-29 15:23 | EKG ---
Date Performed: 10/28/2017 Time Performed: 12:38:03 PTAGE: 57 years EKG: SINUS BRADYCARDIA BORDERLINE ECG PREVIOUS TRACING : 02/22/2016 13.16 Since previous tracing, no significant change noted DOCTOR: Virgil Corea Interpretating Date/Time 10/29/2017 15:23:05
--- NOTE | 2017-10-29 15:40 | TR ---
Date Performed: 10/28/2017 Time Performed: 17:35:04 DOCTOR: Virgil Corea DRUG LIST: CLINICAL HISTORY: CHEST PAIN REASON FOR TEST: Chest pain REASON FOR ENDING: OBSERVATION: CONCLUSION: Wang protocol completed. Stopped sec to patient jumping off treadmill due to leg fa tigue. Maximum QR=770 Target HR Achieved=83.0% Maximum DF=749/74 Total Exercise Time=9:38. No repro c hest discomfort. No ectopy. Great exercise tolerance. Diffuse St depression approx 2mm, upsloping seg ment, some st segments horizontal. Normal bp response. Recovery quick with st depression leads V3-V6 and inferior approx 1mm. COMMENTS: ST depression noted at peak exercise. No chest pain noted. Consiostent with false posi tive. Consider nuclear imaging
[2017-10-29] MEDS ORDERED: CHLORHEXIDINE GLUCONATE 4% SOLN 120 ML BTL TOPICAL SCH (16:00)
[2017-10-29] MEDS ORDERED: INSULIN REGULAR (IV INFUSION) 100 UNITS in SODIUM CHLORIDE 0.9% INJ 99 ML IV PRN (16:00)
[2017-10-29] MEDS ORDERED: DEXTROSE 50% IN WATER 50 ML VIAL(D50) IV PUSH PRN (16:00)
[2017-10-29] MEDS ORDERED: SODIUM CHLORIDE 0.9% FLUSH 10 ML FLUSH IV FLUSH PRN (16:00)
[2017-10-29] MEDS ORDERED: ceFAZolin 2 GM PREMIX 50 ML IV SCH (16:00)
[2017-10-29] MEDS ORDERED: CEFAZOLIN INJ 500 MG in SODIUM CHLORIDE 0.9% IRR BTL 500 ML IRRIGATION SCH (16:00)
[2017-10-29] MEDS ORDERED: PAPAVERINE INJ 60 MG, NITROGLYCERIN INJ 100 MCG, DILTIAZEM INJ 100 MG in SODIUM CHLORID... IRRIGATION SCH (16:00)
[2017-10-29] MEDS ORDERED: METOPROLOL TARTRATE 25 MG TAB PO SCH (16:00)
--- NOTE | 2017-10-29 16:21 | HHI.PR ---
Subjective Remarks Pt seen in DOCU after LHC and found to have severe 3 vessel [place] CAD Pt is chest pain free currently Objective Vitals Vital Signs Date Time Temp Pulse Resp B/P (MAP) Pulse Ox O2 Delivery O2 Flow Rate FiO2 10/29/17 12:11 96 Room Air 10/29/17 10:59 96.2 60 18 119/73 (88) 98 10/29/17 08:01 51 10/29/17 07:34 98.4 59 18 130/72 (91) 97 10/29/17 05:19 98.7 64 18 138/74 (95) 94 10/29/17 00:17 98.0 67 18 127/61 (83) 97 10/28/17 20:51 98.0 68 18 133/73 (93) 98 10/28/17 18:14 98.6 88 20 118/73 (88) 98 10/28/17 17:22 (115) Result Diagram: 10/28/17 1242 10/28/17 1242 Other Results Laboratory Tests Test 10/28/17 12:42 10/28/17 16:10 10/28/17 18:35 White Blood Count 7.9 TH/MM3 Red Blood Count 5.24 MIL/MM3 Hemoglobin 16.0 GM/DL Hematocrit 46.0 % Mean Corpuscular Volume 87.9 FL Mean Corpuscular Hemoglobin 30.5 PG Mean Corpuscular Hemoglobin Concent 34.7 % Red Cell Distribution Width 14.0 % Platelet Count 207 TH/MM3 Mean Platelet Volume 8.3 FL Neutrophils (%) (Auto) 52.9 % Lymphocytes (%) (Auto) 35.1 % Monocytes (%) (Auto) 8.0 % Eosinophils (%) (Auto) 3.5 % Basophils (%) (Auto) 0.5 % Neutrophils # (Auto) 4.2 TH/MM3 Lymphocytes # (Auto) 2.8 TH/MM3 Monocytes # (Auto) 0.6 TH/MM3 Eosinophils # (Auto) 0.3 TH/MM3 Basophils # (Auto) 0.0 TH/MM3 CBC Comment DIFF FINAL Differential Comment Prothrombin Time 10.3 SEC Prothromb Time International Ratio 1.0 RATIO Activated Partial Thromboplast Time 29.4 SEC Blood Urea Nitrogen 14 MG/DL Creatinine 0.91 MG/DL Random Glucose 129 MG/DL Calcium Level 9.8 MG/DL Magnesium Level 2.1 MG/DL Sodium Level 137 MEQ/L Potassium Level 4.3 MEQ/L Chloride Level 105 MEQ/L Carbon Dioxide Level 28.1 MEQ/L Anion Gap 4 MEQ/L Estimat Glomerular Filtration Rate 86 ML/MIN Total Creatine Kinase 643 U/L 432 U/L 590 U/L Creatine Kinase MB 6.0 NG/ML 4.1 NG/ML 4.7 NG/ML Creatine Kinase MB % 0.9 % 0.9 % 0.8 % Troponin I LESS THAN 0.02 NG/ML LESS THAN 0.02 NG/ML LESS THAN 0.02 NG/ML Lipase 812 U/L Imaging Last Impressions Chest X-Ray 10/28/17 1233 Signed Impressions: Service Date/Time: Saturday, October 28, 2017 12:47 - CONCLUSION: No acute cardiopulmonary disease identified. Leo Velazquez MD Objective Remarks General: NAD, AAOx3 Chest: CTA Cardiac: Regular Abd: +BS, soft ND/NT Ext: No edema A/P Problem List: (1) CAD (coronary artery disease) ICD Codes: I25.10 - Atherosclerotic heart disease of [place] coronary artery without angina pectoris Plan: - Pt is a 57 y/o male with type 2 noninsulin dependent diabetes mellitus - He presented to the ED on 10/28/17 for further evaluation of exertional chest pain. - He was admitted to the Chest pain center and evaluated with an exercise stress test which was positive for significant ST depressions inferiorly, anterolaterally at peak and minimal ST depressions in recovery. - His care was turned over to [facility] hospitalist and cardiology was consulted. - Due to patient bradycardiac rhythm he was not given nitro paste or beta dionne - Pt underwent evaluation with [facility] today with Dr. Cardozo which noted severe three vessel [place] CAD - CTS was consulted for CABG (2) Unstable angina ICD Codes: I20.0 - Unstable angina Status: Acute Plan: - See above (3) Diabetes mellitus type 2, noninsulin dependent ICD Codes: E11.9 - Type 2 diabetes mellitus without complications Status: Chronic Plan: - NovoLog SSI - Accu checks (4) Elevated lipase ICD Codes: R74.8 - Abnormal levels of other serum enzymes Status: Acute Plan: - Pt had a noted elevated Lipase at admission of 812, etiology unclear - Pt denies any alcohol use - Recheck Lipase and Amylase today Assessment and Plan Patient examined. Assessment and plan formulated with Amina Pastor PA-C. I agree with the above. [facility] (10/29) --> severe 3 vessel disease Pt will need CABG. Pt seen by CTS lipase 814 (10/28) Pt with NO c/o abdominal pain, nausea, or vomiting. CTS requesting further evaluation for pt's elevated lipase. Pt hungry and requesting diet. Will obtain repeat lipase. Per request, I have updated pt's son Joss Lr. Amina Pastor Oct 29, 2017 16:21 Juan Bhagat DO Oct 29, 2017 22:11
--- NOTE | 2017-10-29 17:14 | ECHRPT ---
Indication: cp CONCLUSIONS Normal left ventricular size. The left ventricular systolic function is normal with an estimated ejection fraction in the range of 55-60%. Mild mitral valve regurgitation. No aortic valve regurgitation. There is mild tricuspid valve regurgitation. The pulmonary valve is not well visualized. BP: / HR: Rhythm: Technical Quality: FINDINGS LEFT VENTRICLE Normal left ventricular size. The left ventricular systolic function is normal with an estimated ejection fraction in the range of 55-60%. RIGHT VENTRICLE Normal right ventricular size and systolic function. LEFT ATRIUM The left atrial size is normal. RIGHT ATRIUM The right atrial size is normal. ATRIAL SEPTUM Normal atrial septal thickness without atrial level shunting by limited color doppler interrogation. AORTA The aortic root and proximal ascending aorta are normal in size on limited imaging. MITRAL VALVE Structurally normal mitral valve. Mild mitral valve regurgitation. AORTIC VALVE Trileaflet aortic valve. No aortic valve regurgitation. TRICUSPID VALVE Structurally normal tricuspid valve. There is mild tricuspid valve regurgitation. PULMONARY VALVE The pulmonary valve is not well visualized. VESSELS The inferior vena cava is normal in size. PERICARDIUM No pericardial effusion. Wyatt Cardozo MD, FACC (Electronically Signed) Final Date:29 October 2017 17:13
--- NOTE | 2017-10-29 19:57 | RADRPT ---
EXAM DATE/TIME: 10/29/2017 19:06 [facility] COMPARISON: No previous studies available for comparison. INDICATIONS : Preop cardiac surgery. MEDICAL HISTORY : COPD. Kidney stones. Diabetes. Neck trauma. SURGICAL HISTORY : Cholecystectomy. Lithotripsy. ENCOUNTER: Initial ACUITY: 1 day PAIN SCORE: 0/10 LOCATION: Bilateral legs. GREATER SAPHENOUS VEIN THIGH: PROXIMAL: Right 3 mm Left 5 mm MID: Right 2 mm Left 3 mm DISTAL: Right 2 mm Left 4 mm CALF: PROXIMAL: Right 2 mm Left 3 mm MID: Right 2 mm Left 3 mm DISTAL: Right 1 mm Left 3 mm FINDINGS: The venous system of the lower extremities are patent by color Doppler imaging. Measurements of the leg veins (in mm) are listed above. CONCLUSION: Venous mapping as detailed above. Tino Arnold Jr., MD on October 29, 2017 at 19:54 Board Certified Radiologist. This report was verified electronically.
--- NOTE | 2017-10-29 20:06 | RADRPT ---
EXAM DATE/TIME: 10/29/2017 18:59 [facility] COMPARISON: No previous studies available for comparison. INDICATIONS : Preop cardiac surgery. MEDICAL HISTORY : COPD. Kidney stones. Diabetes. Neck trauma. SURGICAL HISTORY : Cholecystectomy. Lithotripsy. ENCOUNTER: Initial ACUITY: 1 day PAIN SCORE: 0/10 LOCATION: Bilateral legs. TECHNIQUE: Venous ultrasound of the left and right leg was performed from the inguinal ligament to the proximal calf. Real-time, color Doppler and spectral tracing, compression and augmentation techniques were us ed. FINDINGS: RIGHT LEG: There is normal compressibility of the deep venous system from the inguinal region to the proximal ca lf. No echogenic clot is seen in the lumen of the common femoral, femoral, popliteal, and posterior tibial veins. There is a normal response of the venous system to proximal and distal augmentation an d respiration. LEFT LEG: There is normal compressibility of the deep venous system from the inguinal region to the proximal ca lf. No echogenic clot is seen in the lumen of the common femoral, femoral, popliteal, and posterior tibial veins. There is a normal response of the venous system to proximal and distal augmentation an d respiration. CONCLUSION: Normal examination. Tino Arnold Jr., MD on October 29, 2017 at 20:03 Board Certified Radiologist. This report was verified electronically.
--- NOTE | 2017-10-29 20:08 | RADRPT ---
EXAM DATE/TIME: 10/29/2017 19:22 [facility] COMPARISON: No previous studies available for comparison. INDICATIONS : Preop cardiac surgery. MEDICAL HISTORY : COPD. Kidney stones. Diabetes. Neck trauma. SURGICAL HISTORY : Cholecystectomy. Lithotripsy. ENCOUNTER: Initial ACUITY: 1 day PAIN SCORE: 0/10 LOCATION: Bilateral neck PEAK SYSTOLIC VELOCITIES (cm/sec): ICA/CCA RATIO: Right: 1.0 Left: 0.9 ICA: Right: 91 Left: 78 CCA: Right: 88 Left: 82 ECA: Right: 117 Left: 90 VERTEBRAL: Right: 60 antegrade Left: 47 antegrade Elevated flow velocities and ICA/CCA ratios have been found to correlate with increased degrees of vessel stenosis, calculated as percentage of diameter relative to a normal segment of distal ICA/CCA FINDINGS: RIGHT CAROTID: No significant stenosis is visualized. The waveforms are within normal limits. LEFT CAROTID: No significant stenosis is visualized. The waveforms are within normal limits. VERTEBRAL ARTERIES: Antegrade flow is seen in both vertebral arteries. MISCELLANEOUS: None. CONCLUSION: 1. Patent carotid arteries. 2. Antegrade flow involving both vertebral arteries. Tino Arnold Jr., MD on October 29, 2017 at 20:04 Board Certified Radiologist. This report was verified electronically.
[2017-10-29] MEDS: SODIUM CHLORIDE 0.9% FLUSH 10 ML FLUSH IV FLUSH SCH (21:24)
[2017-10-29 22:35] LABS: AMYLASE 71 U/L (25-115)
[2017-10-29] MEDS: ZOLPIDEM TARTRATE 10 MG TAB PO PRN (23:47)
[2017-10-30] VITALS (28 sets, daily range): BP systolic 135–149; BP diastolic 70–79; PULSE 54–94; RESP 16–17; TEMP 98–98.6; O2SAT 98–99
[2017-10-30 06:35] LABS: ALBUMIN 3.6 GM/DL (3.4-5.0); ALKALINE PHOSPHATASE 94 U/L (45-117); ALT (GPT) 24 U/L (12-78); AST (GOT) 17 U/L (15-37); BICARBONATE 23.6 MEQ/L (21.0-32.0); BLOOD UREA NITROGEN 16 MG/DL (7-18); CALCIUM 8.7 MG/DL (8.5-10.1); CHLORIDE 106 MEQ/L (98-107); CHOLESTEROL 130 MG/DL (120-200); CHOLESTEROL/ HDL RATIO 3.01 RATIO; CREATININE 0.96 MG/DL (0.60-1.30); GLOMERULAR FILTRATION RATE 81 ML/MIN (>89); GLUCOSE,RANDOM 132 MG/DL (74-106); HDL CHOLESTEROL 43.1 MG/DL (40.0-60.0); LDL CHOLESTEROL 74 MG/DL (0-99); LIPASE 203 U/L (73-393); SODIUM (NA) 138 MEQ/L (136-145); TOTAL BILIRUBIN ADULT 0.7 MG/DL (0.2-1.0); TOTAL PROTEIN 7.1 GM/DL (6.4-8.2); TRIGLYCERIDES 65 MG/DL (42-150)
[2017-10-30] MEDS: INSULIN ASPART SUPPLEMENTAL SCALE SQ SCH ×4 (07:02→20:55)
[2017-10-30 08:34] LABS: BILIRUBIN, URINE NEG (NEG); BLOOD, URINE NEG (NEG); GLUCOSE,URINE 1000 mg/dL (NEG); KETONE, URINE NEG (NEG); NITRITE,URINE NEG (NEG); SQUAMOUS EPITHELIAL CELL URINE <1 /hpf (0-5); URINE COLOR LIGHT-YELLOW (YELLW/STRAW); URINE LEUKOCYTE ESTERASE NEG (NEG)
[2017-10-30] MEDS: SODIUM CHLORIDE 0.9% FLUSH 10 ML FLUSH IV FLUSH SCH ×2 (08:48→20:55)
[2017-10-30] MEDS: ASPIRIN 325 MG TAB PO SCH (08:48)
[2017-10-30] MEDS: PANTOPRAZOLE SOD 40 MG DELAYED RELEASE TAB PO SCH (08:48)
--- NOTE | 2017-10-30 09:03 | PD.CARD.PN ---
Subjective Subjective Remarks feeling well. denies chest pain or sob (Yamileth Wells) Objective Medications Current Medications Medications (Trade) Dose Ordered Sig/Shereen Route Start Time Stop Time Status Last Admin (NS Flush) 2 ml UNSCH PRN IVF 10/28/17 12:45 (NS Flush) 2 ml UNSCH PRN IVF 10/28/17 13:15 (Tylenol) 500 mg Q4H PRN PO 10/28/17 15:15 (Zofran Inj) 4 mg Q6H PRN IV PUSH 10/28/17 15:15 (Nitrostat Sl) 0.4 mg Q5M PRN SL 10/28/17 15:15 (Aspirin) 325 mg DAILY PO 10/29/17 09:00 10/30/17 08:48 (D50w (Vial) Inj) 50 ml UNSCH PRN IV PUSH 10/28/17 18:15 (Glucagon Inj) 1 mg UNSCH PRN OTHER 10/28/17 18:15 (NovoLOG SUPPLEMENTAL SCALE) 1 ACHS SLIDING SCALE SQ 10/28/17 21:00 10/29/17 21:24 (Protonix) 40 mg DAILY PO 10/28/17 18:30 10/30/17 08:48 (Ativan Inj) 1 mg Q4H PRN IV PUSH 10/29/17 13:30 (NS Flush) 2 ml BID IV FLUSH 10/29/17 21:00 10/30/17 08:48 (NS Flush) 2 ml UNSCH PRN IV FLUSH 10/29/17 16:00 Papaverine HCl 60 mg/Nitroglycerin 100 mcg/Diltiazem HCl 100 mg/Sodium Chloride 100 ml @ 0 mls/hr HEALTH CARE CONSULTANT IRRIGATION 10/29/17 16:00 11/05/17 15:59 Cefazolin Sodium 500 mg/Sodium Chloride 505 ml @ 0 mls/hr HEALTH CARE CONSULTANT IRRIGATION 10/29/17 16:00 11/05/17 15:59 Cefazolin Sodium/ Dextrose 50 ml @ 150 mls/hr HEALTH CARE CONSULTANT IV 10/29/17 16:00 11/05/17 15:59 (Lopressor) 12.5 mg HEALTH CARE CONSULTANT PO 10/29/17 16:00 11/05/17 15:59 (Hibiclens 4% Top Soln) 1 applic HEALTH CARE CONSULTANT TOPICAL 10/29/17 16:00 1/22/18 15:59 Insulin Human Regular 100 units/ Sodium Chloride 100 ml @ 3 mls/hr TITRATE PRN IV 10/29/17 16:00 11/05/17 15:59 (D50w (Vial) Inj) 50 ml UNSCH PRN IV PUSH 10/29/17 16:00 (Ambien) 10 mg HS PRN PO 10/29/17 23:45 10/29/17 23:47 (Lipitor) 10 mg HS PO 10/30/17 21:00 Vital Signs / I&O Vital Signs Date Time Temp Pulse Resp B/P (MAP) Pulse Ox O2 Delivery O2 Flow Rate FiO2 10/30/17 06:01 60 10/30/17 05:04 59 10/30/17 04:00 56 10/30/17 03:02 54 10/30/17 02:00 55 10/30/17 01:01 57 10/30/17 00:05 77 10/29/17 23:00 65 10/29/17 22:57 98.2 70 18 159/86 (110) 98 10/29/17 22:00 75 10/29/17 21:00 72 10/29/17 20:01 97.7 66 16 155/78 (103) 96 10/29/17 20:00 69 10/29/17 19:00 60 10/29/17 12:11 96 Room Air 10/29/17 10:59 96.2 60 18 119/73 (88) 98 I/O 10/29/17 10/29/17 10/29/17 10/30/17 10/30/17 10/30/17 07:00 15:00 23:00 07:00 15:00 23:00 Intake Total 720 ml Balance 720 ml Intake Oral 720 ml # Voids 2 Physical Exam GENERAL: SKIN: Warm and dry. HEAD: Atraumatic. Normocephalic. EYES: Pupils equal and round. No scleral icterus. No injection or drainage. ENT: No nasal bleeding or discharge. Mucous membranes pink and moist. NECK: Trachea midline. No JVD. CARDIOVASCULAR: Regular rate and rhythm. no murmurs RESPIRATORY: No accessory muscle use. Clear to auscultation. Breath sounds equal bilaterally. GASTROINTESTINAL: Abdomen soft, non-tender, nondistended. Hepatic and splenic margins not palpable. MUSCULOSKELETAL: Extremities without clubbing, cyanosis, or edema. No obvious deformities. NEUROLOGICAL: Awake and alert. No obvious cranial nerve deficits. Normal speech. PSYCHIATRIC: Appropriate mood and affect; insight and judgment normal. Laboratory Laboratory Tests Test 10/29/17 21:43 10/29/17 23:00 10/30/17 03:45 10/30/17 08:00 Amylase Level 71 U/L Lipase 239 U/L 203 U/L Nasal Screen MRSA (PCR) MRSA DETECTED Blood Urea Nitrogen 16 MG/DL Creatinine 0.96 MG/DL Random Glucose 132 MG/DL Total Protein 7.1 GM/DL Albumin 3.6 GM/DL Calcium Level 8.7 MG/DL Alkaline Phosphatase 94 U/L Aspartate Amino Transf (AST/SGOT) 17 U/L Alanine Aminotransferase (ALT/SGPT) 24 U/L Total Bilirubin 0.7 MG/DL Sodium Level 138 MEQ/L Potassium Level 3.6 MEQ/L Chloride Level 106 MEQ/L Carbon Dioxide Level 23.6 MEQ/L Anion Gap 8 MEQ/L Estimat Glomerular Filtration Rate 81 ML/MIN Triglycerides Level 65 MG/DL Cholesterol Level 130 MG/DL LDL Cholesterol 74 MG/DL HDL Cholesterol 43.1 MG/DL Cholesterol/HDL Ratio 3.01 RATIO Urine Color LIGHT-YELLOW Urine Turbidity CLEAR Urine pH 6.0 Urine Specific [place] 1.019 Urine Protein NEG mg/dL Urine Glucose (UA) 1000 mg/dL Urine Ketones NEG mg/dL Urine Occult Blood NEG Urine Nitrite NEG Urine Bilirubin NEG Urine Urobilinogen LESS THAN 2.0 MG/DL Urine Leukocyte Esterase NEG Urine RBC 1 /hpf Urine WBC LESS THAN 1 /hpf Urine Squamous Epithelial Cells <1 /hpf Microscopic Urinalysis Comment CULT NOT INDICATED (Yamileth Wells) Assessment and Plan Problem List: (1) Chest pain in adult ICD Codes: R07.9 - Chest pain, unspecified Status: Acute Assessment and Plan 57 year old male with history of Type 2 noninsulin diabetes presents to ER for further evaluation of chest pain chest pain- asymptomatic since admission cardiac cath reveals severe 3 vessel disease. CTS following for consideration of CABG. will sign off (Yamileth Wells) Assessment and Plan \ unstable angina 3 Vz CAD awaiting CABG pancreatitis. amylase improving. will sign off call with further questions (Wyatt Cardozo MD) Yamileth Wells Oct 30, 2017 09:03 Wyatt Cardozo MD Oct 30, 2017 09:07
--- NOTE | 2017-10-30 11:00 | HHI.PR ---
Subjective Remarks Pt is tolerating PO intake. Pt denies c/o abdominal pain. Pt denies n/v. Pt is eager to proceed with CABG. Objective Vitals Vital Signs Date Time Temp Pulse Resp B/P (MAP) Pulse Ox O2 Delivery O2 Flow Rate FiO2 10/30/17 10:00 78 10/30/17 09:00 72 10/30/17 08:00 70 10/30/17 07:42 98.0 74 16 135/79 (97) 98 10/30/17 07:00 59 10/30/17 06:01 60 10/30/17 05:04 59 10/30/17 04:00 56 10/30/17 03:02 54 10/30/17 02:00 55 10/30/17 01:01 57 10/30/17 00:05 77 10/29/17 23:00 65 10/29/17 22:57 98.2 70 18 159/86 (110) 98 10/29/17 22:00 75 10/29/17 21:00 72 10/29/17 20:01 97.7 66 16 155/78 (103) 96 10/29/17 20:00 69 10/29/17 19:00 60 10/29/17 12:11 96 Room Air 10/29/17 10:59 96.2 60 18 119/73 (88) 98 Result Diagram: 10/28/17 1242 10/30/17 0345 Imaging Last Impressions Lower Extremity Ultrasound 10/29/17 0000 Signed Impressions: Service Date/Time: Sunday, October 29, 2017 19:06 - CONCLUSION: Venous mapping as detailed above. Tino Arnold Jr., MD Carotid Artery Ultrasound 10/29/17 0000 Signed Impressions: Service Date/Time: Sunday, October 29, 2017 19:22 - CONCLUSION: 1. Patent carotid arteries. 2. Antegrade flow involving both vertebral arteries. Tino Arnold Jr., MD Chest X-Ray 10/28/17 1233 Signed Impressions: Service Date/Time: Saturday, October 28, 2017 12:47 - CONCLUSION: No acute cardiopulmonary disease identified. Leo Velazquez MD Objective Remarks General: NAD, AAOx3 Chest: CTA Cardiac: Regular Abd: +BS, soft ND/NT Ext: No edema A/P Problem List: (1) CAD (coronary artery disease) ICD Codes: I25.10 - Atherosclerotic heart disease of [place] coronary artery without angina pectoris Plan: - Pt is a 57 y/o male with type 2 noninsulin dependent diabetes mellitus - He presented to the ED on 10/28/17 for further evaluation of exertional chest pain. - He was admitted to the Chest pain center and evaluated with an exercise stress test which was positive for significant ST depressions inferiorly, anterolaterally at peak and minimal ST depressions in recovery. - His care was turned over to [facility] hospitalist and cardiology was consulted. - Due to patient bradycardiac rhythm he was not given nitro paste or beta dionne - Pt underwent evaluation with [facility] today with Dr. Cardozo which noted severe three vessel mentasta CAD - CTS was consulted for CABG - Case d/w Dr. Newby (10/30). Will proceed with CABG 10/31/17 - Pt started on lipitor 10mg daily - Pt's son, Joss Jonas was updated (10/30) - DVT prophylaxis - supportive care (2) Unstable angina ICD Codes: I20.0 - Unstable angina Status: Acute Plan: - See above (3) Diabetes mellitus type 2, noninsulin dependent ICD Codes: E11.9 - Type 2 diabetes mellitus without complications Status: Chronic Plan: - NovoLog SSI - Accu checks (4) Elevated lipase ICD Codes: R74.8 - Abnormal levels of other serum enzymes Status: Acute Plan: - Pt had a noted elevated Lipase at admission of 812, etiology unclear - Pt denies any alcohol use - repeat lipase is normal - pt is tolerating PO intake without n/v Juan Bhagat DO Oct 30, 2017 10:59
--- NOTE | 2017-10-30 11:28 | RSPPFT ---
DATE OF PROCEDURE: 10/29/17 COMMENTS: Spirometry shows FVC of 2.7 at 79% of predicted, FEV1 of 2.3 at 84%, FEV1/FVC ratio is normal. Flow is normal at FEF 25, FEF 50, FEF 75 and FEF 25-75. Post-bronchodilator study was not done. IMPRESSION: 1. Normal spirometry. 2. Post-bronchodilator study was not done.
--- NOTE | 2017-10-30 14:19 | MB ---
cc: NICOLLE PIKE MD DATE OF CONSULTATION 10/29/2017 DATE OF 1960 HISTORY OF THE PRESENT ILLNESS A 57-year-old male, patient of Dr. Bailey, Dr. Cardozo was admitted on the 14th waking up with some chest discomfort, had some sharp epigastric pain. He pointed to the epigastric area. He had no associated symptoms of nausea, vomiting, shortness of breath or diaphoresis. The pain came and waxed and waned for approximately an hour. It hurt to take a deep breath. He denied having any similar pain like this in the past. He states he is basically very active and uses a treadmill. Actually got on the treadmill hoping that it would resolve. The discomfort worsened while he was on the treadmill so he stopped. He notified his son who is a medical student in [place] who instructed his father to go to the emergency department for evaluation. The patient presented troponins that were negative x3. He did undergo exercise stress test where he had some ST depression noted at peak of exercise. Diffuse ST depression approximately 2 mm. It was a possible false positive. The patient underwent cardiac cath today by Dr. Cardozo for the unstable angina. Stress test was apparently an intermediate risk. The proximal LAD had a 70% lesion. The diagonal had a 90% lesion. The circ had 80%. The OM 100%. The RCA 99%. We were consulted for possible coronary artery bypass grafting. in the midst of his evaluation it was however found that his lipase was 812 which requires further workup and evaluation and this was discussed with Dr. Bhagat. In the meantime we did speak to the son Benito who is a senior medical technologist up in [place] and who translated further with his father that further workup was required prior to any surgery at this time. The patient's risk factors include: 1. Age. 2. Diabetes mellitus. 3. Family history. PAST MEDICAL HISTORY 1. Diabetes mellitus type 2. 2. Questionable hyperlipidemia. The patient states that he takes medication periodically. Does not take aspirin on a regular basis. 3. He has a history of kidney stone surgery to include lithotripsy. 4. Cholecystectomy. ALLERGIES NO KNOWN ALLERGIES. MEDICATIONS Home meds include: 1. Metformin. 2. Jardiance. 3. Glimepiride. FAMILY HISTORY Mother at 95 from a stroke. His father when he was approximately age 4, unclear of reason for his . SOCIAL HISTORY The patient , two children. 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 No tobacco. No alcohol. Relatively active. works out on a treadmill. REVIEW OF SYSTEMS GENERAL: No night sweats, fever, heat and cold intolerance. SKIN: No psoriasis, itching or hives. HEENT: No blurred vision, hearing loss. RESPIRATORY: No cough, shortness of breath. CARDIOVASCULAR: As above in HPI. GASTROINTESTINAL: No nausea, vomiting. No diarrhea, no abdominal pain. GENITOURINARY: No burning, frequency, urgency. INDOOR LANDSCAPER/GARDENER: No history of TIA, CVA, seizure disorder. ENDOCRINE: Positive for diabetes. PHYSICAL EXAMINATION VITAL SIGNS: On exam blood pressure 120/70, heart rate 60, temperature max 98.4, O2 sat 96 on room air. GENERAL: Patient is awake, alert in no acute distress. HEENT: Head is normocephalic, atraumatic. Pupils equal and reactive. Oral mucosa pink, moist. NECK: Supple. No JVD. CARDIOVASCULAR: Heart sounds S1-S2 regular rate and rhythm. No audible rubs, murmurs, gallops. LUNGS: Clear to auscultation. No wheezes, rales or rhonchi. ABDOMEN: Soft, nontender. No masses or organomegaly. EXTREMITIES: Reveal no cyanosis, clubbing or edema. LABORATORY DATA Lab work shows hemoglobin of 16, hematocrit of 46, white cell count 7.9, platelet count 207. Sodium 137, potassium 4.3, BUN 14, creatinine 0.91. Troponin 0.9. His lipase 812, glucose 129. INR 1.0. IMAGING The chest x-ray shows no acute changes. IMPRESSION This is a 57-year-old male type 2 diabetes presented with chest discomfort, intermediate risk for stress test, underwent cardiac cath with multivessel disease, ejection fraction of 65%. The cardiac films have been evaluated by Dr. Nicolle Pike and plan will be for coronary artery bypass grafting. However, again reiterated that the patient has an elevated lipase that needs complete workup. Currently the patient is asymptomatic, however we will check lipids, liver enzymes, repeat lipase, check amylase and ultrasound of the abdomen. I have discussed this also with primary care team and further plan pending the results of his exam. DICTATED BY: CHAVEZ eBll Nicolle MCKEON /3:53 PM /7:53 AM
--- NOTE | 2017-10-30 14:39 | PD.CAR.PN ---
CVT Progress Note Subjective/Hospital Course: 57-year-old male, patient of Dr. Bailey, Dr. Cardozo was admitted on the 14th waking up with some chest discomfort, had some sharp epigastric pain. He pointed to the epigastric area. He had no associated symptoms of nausea, vomiting, shortness of breath or diaphoresis. The pain came and waxed and waned for approximately an hour. It hurt to take a deep breath. He denied having any similar pain like this in the past. He states he is basically very active and uses a treadmill. Actually got on the treadmill hoping that it would resolve. The discomfort worsened while he was on the treadmill so he stopped. He notified his son who is a medical student in [place] who instructed his father to go to the emergency department for evaluation. The patient presented troponins that were negative x3. He did undergo exercise stress test where he had some ST depression noted at peak of exercise. Diffuse ST depression approximately 2 mm. It was a possible false positive. The patient underwent cardiac cath today by Dr. Cardozo for the unstable angina. Stress test was apparently an intermediate risk. The proximal LAD had a 70% lesion. The diagonal had a 90% lesion. The circ had 80%. The OM 100%. The RCA 99%. We were consulted for possible coronary artery bypass grafting. in the midst of his evaluation it was however found that his lipase was 812 which required further workup and evaluation and this was discussed with Dr. Bhagat. His repeat lipase was 239>203 , normal amylase and LFT, lipid panel noted , no significant HLP PMH: Diabetes mellitus type 2, Questionable hyperlipidemia. The patient states that he takes medication periodically. Does not take aspirin on a regular basis, history of kidney stone surgery to include lithotripsy, Cholecystectomy 10/30 pt remains pain free now rescheduled for surgery in am Objective: GENERAL: SKIN: Warm and dry. HEAD: Normocephalic. EYES: No scleral icterus. No injection or drainage. NECK: Supple, trachea midline. No JVD or lymphadenopathy. CARDIOVASCULAR: Regular rate and rhythm without murmurs, gallops, or rubs. RESPIRATORY: Breath sounds equal bilaterally. No accessory muscle use. GASTROINTESTINAL: Abdomen soft, non-tender, nondistended. MUSCULOSKELETAL: No cyanosis, or edema. BACK: Nontender without obvious deformity. No CVA tenderness. Vital Signs Date Time Temp Pulse Resp B/P (MAP) Pulse Ox O2 Delivery O2 Flow Rate FiO2 10/30/17 14:00 61 10/30/17 13:00 65 10/30/17 12:00 80 10/30/17 11:00 64 10/30/17 10:00 78 10/30/17 09:00 72 10/30/17 08:00 70 10/30/17 07:42 98.0 74 16 135/79 (97) 98 10/30/17 07:00 59 10/30/17 06:01 60 10/30/17 05:04 59 10/30/17 04:00 56 10/30/17 03:02 54 10/30/17 02:00 55 10/30/17 01:01 57 10/30/17 00:05 77 10/29/17 23:00 65 10/29/17 22:57 98.2 70 18 159/86 (110) 98 10/29/17 22:00 75 10/29/17 21:00 72 10/29/17 20:01 97.7 66 16 155/78 (103) 96 10/29/17 20:00 69 10/29/17 19:00 60 Labs: Laboratory Tests Test 10/30/17 03:45 10/30/17 08:00 Blood Urea Nitrogen 16 MG/DL (7-18) Creatinine 0.96 MG/DL (0.60-1.30) Random Glucose 132 MG/DL (74-106) Total Protein 7.1 GM/DL (6.4-8.2) Albumin 3.6 GM/DL (3.4-5.0) Calcium Level 8.7 MG/DL (8.5-10.1) Alkaline Phosphatase 94 U/L (45-117) Aspartate Amino Transf (AST/SGOT) 17 U/L (15-37) Alanine Aminotransferase (ALT/SGPT) 24 U/L (12-78) Total Bilirubin 0.7 MG/DL (0.2-1.0) Sodium Level 138 MEQ/L (136-145) Potassium Level 3.6 MEQ/L (3.5-5.1) Chloride Level 106 MEQ/L (98-107) Carbon Dioxide Level 23.6 MEQ/L (21.0-32.0) Anion Gap 8 MEQ/L (5-15) Estimat Glomerular Filtration Rate 81 ML/MIN (>89) Triglycerides Level 65 MG/DL (42-150) Cholesterol Level 130 MG/DL (120-200) LDL Cholesterol 74 MG/DL (0-99) HDL Cholesterol 43.1 MG/DL (40.0-60.0) Cholesterol/HDL Ratio 3.01 RATIO Lipase 203 U/L (73-393) Urine Color LIGHT-YELLOW (YELLW/STRAW) Urine Turbidity CLEAR (CLEAR) Urine pH 6.0 (5.0-8.5) Urine Specific [place] 1.019 (1.002-1.035) Urine Protein NEG mg/dL (NEG-TRACE) Urine Glucose (UA) 1000 mg/dL (NEG) Urine Ketones NEG mg/dL (NEG) Urine Occult Blood NEG (NEG) Urine Nitrite NEG (NEG) Urine Bilirubin NEG (NEG) Urine Urobilinogen LESS THAN 2.0 MG/DL (LESS Urine Leukocyte Esterase NEG (NEG) Urine RBC 1 /hpf (0-3) Urine WBC LESS THAN 1 /hpf (0-5) Urine Squamous Epithelial Cells <1 /hpf (0-5) Microscopic Urinalysis Comment CULT NOT INDICATED Result Diagram: 10/28/17 1242 10/30/17 0345 (1) CAD (coronary artery disease) Plan: for surgery in am on ASA, statin (2) Diabetes mellitus type 2, noninsulin dependent (3) Chest pain in adult Cindy Duval Oct 30, 2017 14:39
[2017-10-30 18:04] LABS: HEMOGLOBIN A1C 8.5 % (4.3-6.0)
[2017-10-30] MEDS ORDERED: CHLORHEXIDINE GLUCONATE 2 % 1 PACK (2 CLOTHS) TOPICAL PRN ×2 (20:45→21:00)
[2017-10-30] MEDS ORDERED: POVIDONE IODINE 5% (ANTISEPSIS KIT) 4 APPLICATIONS EACH NARE PRN ×2 (20:45→21:00)
[2017-10-30] MEDS ORDERED: SODIUM CHLORID 0.9% 500 ML IV PRN ×2 (20:45→21:00)
[2017-10-30] MEDS ORDERED: LACTATED RINGER'S 1000 ML IV PRN ×2 (20:45→21:00)
[2017-10-30] MEDS ORDERED: METOPROLOL TARTRATE 25 MG TAB PO PRN ×2 (20:45→21:00)
[2017-10-30] MEDS ORDERED: INSULIN HUMAN REGULAR 1,000 UNITS/10 ML VIAL SQ PRN (20:45)
[2017-10-30] MEDS ORDERED: ATORVASTATIN 10 MG TAB PO SCH (21:00)
[2017-10-31] VITALS (23 sets, daily range): BP systolic 97–148; BP diastolic 54–91; PULSE 59–87; RESP 12–20; TEMP 97.6–98.5; O2SAT 97–99
[2017-10-31] MEDS ORDERED: VANCOMYCIN HCL 1000 MG VIAL ONE (06:27)
[2017-10-31] MEDS ORDERED: HEPARIN SODIUM - SQ 10,000 UNITS/ML VIAL ONE ×2 (06:27→06:28)
[2017-10-31] MEDS ORDERED: ceFAZolin 2 GM PREMIX 50 ML ONE (06:28)
[2017-10-31] MEDS ORDERED: DEXMEDETOMIDINE HCL 200 MCG/2 ML VIAL ONE (11:02)
--- NOTE | 2017-10-31 11:32 | HHI.FF ---
Face to Face Verification Diagnosis: (1) S/P CABG (coronary artery bypass graft) (2) Unstable angina (3) Chest pain in adult (4) CAD (coronary artery disease) (5) Diabetes mellitus type 2, noninsulin dependent Home Health Nursing Order: Signs/symptoms of disease process Medication education-adverse effect Wound care and dressing changes Nursing assessment with vital signs Instructions: Heart and Vascular Surgery patients *Special attention to sternal dressing Mandatory frequency Assess and evaluation, 4 days in a row The next week 3X week 2 times a week for 4 weeks 1 time a week for 5 weeks Schedule Heart and Vascular patients for full 60 day certification period Initial visit Review Open Heart Surgery Discharge Instructions (Sternal precautions, Activity, Elastic hose, Incision care, Driving, Incentive spirometry, Smoking, [place], Work and other) Need Betadine to paint incision Medication reconciliation Importance of follow up care/ check on appointments Make calendar record temperature daily When to call [facility] nurse, review instructions, phone list Incentive Spirometry, demonstration Visit 1- Begin discharge instruction for patient family and/ or caregiver using teach back method- Signs and symptoms of infection Disease characteristics Medicines and side effects Foods and nutrition/ appetite Infection control/ hand washing/ hygiene Visit 2- Continue teaching Discharge instructions- include additional information on smoking cessation , sternal dressing (sternal vac) Visit 3- Continue teaching- Cough and deep breathing, incision monitoring. Choose my plate Visit 4- Continue teaching- Discuss limitations Discuss how they are feeling Discuss progress toward goals Remaining visits- continue teaching and monitoring PREVENA Single Use Negative Wound Therapy System Caregiver Instruction Sheet 1. A Prevena dressing system was applied to the chest incision during surgery , to promote wound healing. It works via a suction device (negative pressure wound therapy) to remove low to moderate levels of exudate (drainage) and infectious materials. We recommend that the device stay in place for up to seven days, from day of surgery. 2. Day of Surgery__/ Day of Removal __11/07/17 3. The dressing should only be removed by a health resident care supervisor. Please arrange removal of device to coincide with Home Health visit and or with Nursing staff at Rehab 4. If skin reddening or irritation of skin occurs, or excessive drainage, please notify the Cardiovascular Surgeons office at [phone]. 5. Light showering is permissible; however the pump should be disconnected and placed in safe location, where it will not get wet. The dressing should not be exposed to direct spray or submerged in water. No bath tub / shower only. Ensure the end of the tubing attached to the dressing is facing down so that water does not enter the top of the tube. 6. To remove Prevena dressing: press purple button to turn off device / remove the suction. Then disconnect the tubing from the pump. The fixation strips should be stretched away from the skin and the dressing lifted at one corner and peeled back until it has been fully removed. 7. After removal, it is ok to shower daily using liquid dial soap and clean wash cloth, rinse and pat dry, and leave incision open to air dry. For any concerns regarding Prevena dressing, and or wounds, please contact Malou Gonzalez, patient navigator at [phone] or notify the Cardiovascular Surgeons office at [phone]. Incentive spirometry Q1 hr x 10, while awake, also use acapella device hourly whole awake Sternal Breast Bone Precautions: NO pushing or pulling, ( pt must use sternal pillow to support chest with all activities and with coughing ( takes up to 3 months breast bone to heal ) Daily incision care: ok to shower daily, no tub bath. Wash all incisions with liquid dial soap, clean wash cloth to each site, rinse and pat dry. Observe for any signs of infection, such as drainage which is dark yellow, dailey, green or foul smelling. Immediately report to the surgeon any drainage from the chest incision, or legs, and for any abnormal drainage from the chest tube sites. Notify surgeon if any temp >101.5 degrees F. When specialty dressing removed/ or if you do not have one, continue to shower daily as above, then rinse and pat incision dry and paint with betadine daily x 5 days. Allow steri strips to fall off if you have any. Avoid lotions, creams, salves, oils, etc. for the first month Please see attached forms for additional instructions regarding post Open Heart specialty wound vacuum dressings. SPENCER or Prevena , Dressing to be removed by Nursing staff on __11/07/17 F/U appointment: as per DC instructions: PCP in 2 weeks, CV surgeon 2 weeks, Spot Sprayer 3-4 weeks For any questions regarding incisions/ dressing / meds / post op care or above Symptoms, Sunday 8am-5pm Heart & Vascular Surgery Office ( Dr. Newby & Dr. Ford), After Hours / Nights (5pm -8am) Weekends and Holidays Please call [facility] ([facility]) Charge Nurse I have seen patient Leonardo Clarke on 10/31/17. My clinical findings support the need for the requested home health care services because: Patient has SOB I certify that my clinical findings support that this patient is homebound because: Post-op weakness Cindy Duval Oct 31, 2017 11:32
[2017-10-31] MEDS ORDERED: ceFAZolin INJ 1,000 MG VIAL IV ONE (12:00)
[2017-10-31] MEDS ORDERED: GLYCOPYRROLATE 1 MG/5 ML SYRINGE IV PUSH ONE (12:00)
[2017-10-31] MEDS ORDERED: ePHEDrine/NS 25 MG/5 ML SYRINGE IV ONE (12:00)
[2017-10-31] MEDS ORDERED: LACTATED RINGER'S 1000 ML INJ 2,000 ML IV ONE (12:00)
[2017-10-31] MEDS ORDERED: POTASSIUM CHLOR 40 MEQ PREMIX 100 ML ONE (12:40)
[2017-10-31] MEDS ORDERED: LACTATED RINGER'S 1000 ML INJ 500 ML IV PRN (12:43)
[2017-10-31] MEDS ORDERED: DOBUTamine PREMIX DRIP 250 ML IV PRN (12:43)
[2017-10-31] MEDS ORDERED: MORPHINE SULFATE 2 MG/ML INJ IV PUSH PRN (12:45)
[2017-10-31] MEDS ORDERED: DOPamine INJ PREMIX 500 ML IV PRN (12:45)
[2017-10-31] MEDS ORDERED: CALCIUM CHLORIDE INJ 1 GM in SODIUM CHLORIDE 0.9% INJ 100 ML IV PRN (12:45)
[2017-10-31] MEDS ORDERED: POTASSIUM CHLORIDE 20 MEQ CONTROLLED RELEASE TAB PO PRN ×2 (12:45)
[2017-10-31] MEDS ORDERED: RESP: RACEPINEPHRINE 2.25% 0.5 ML NEB NEB PRN (12:45)
[2017-10-31] MEDS ORDERED: ONDANSETRON HCL 4 MG/2 ML VIAL IV PUSH PRN (12:45)
[2017-10-31] MEDS ORDERED: NITROGLYCERIN-D5W 50 MG/250 ML 250 ML IV PRN (12:45)
[2017-10-31] MEDS ORDERED: ACETAMINOPHEN 325 MG TAB PO PRN (12:45)
[2017-10-31] MEDS ORDERED: ALBUMIN 5% INJ 250 ML IV PRN (12:45)
[2017-10-31] MEDS ORDERED: INSULIN REGULAR (IV INFUSION) 100 UNITS in SODIUM CHLORIDE 0.9% INJ 99 ML IV PRN (12:45)
[2017-10-31] MEDS ORDERED: DEXMEDETOMIDINE INJ 200 MCG in SODIUM CHLORIDE 0.9% INJ 50 ML IV PRN (12:45)
[2017-10-31] MEDS ORDERED: CLEVIDIPINE INJ 50 ML IV PRN (12:45)
[2017-10-31] MEDS ORDERED: PHENYLEPHRINE INJ 40 MG in DEXTROSE 5% IN WATE 500 ML INJ 496 ML IV PRN ×2 (12:45)
[2017-10-31] MEDS ORDERED: ACETAMINOPHEN 650 MG SUPP RECTAL PRN (12:45)
[2017-10-31] MEDS ORDERED: SODIUM CHLORIDE 0.9% FLUSH 10 ML FLUSH IV FLUSH PRN (12:45)
[2017-10-31] MEDS ORDERED: RESP: ALBUTEROL 2.5 MG/IPRATROPIUM 0.5 MG NEB (PRN) NEB (12:45)
[2017-10-31] MEDS ORDERED: MAGNESIUM SULFATE INJ 2 GM in SODIUM CHLORIDE 0.9% INJ 100 ML IV PRN ×4 (12:45)
[2017-10-31] MEDS ORDERED: CALCIUM CHLORIDE 10% 1 GRAM/10 ML VIAL IV PUSH PRN (12:45)
[2017-10-31] MEDS ORDERED: DEXTROSE 50% IN WATER 50 ML VIAL(D50) IV PUSH PRN (12:45)
[2017-10-31] MEDS ORDERED: hydrALAZINE HCL 20 MG/ML VIAL IV PUSH PRN (12:45)
[2017-10-31] MEDS ORDERED: MEPERIDINE HCL 25 MG/ML VIAL IV PUSH PRN (12:45)
[2017-10-31] MEDS ORDERED: POTASSIUM CHLOR 20 MEQ PREMIX 100 ML IV PRN ×3 (12:45)
[2017-10-31] MEDS ORDERED: METOPROLOL TARTRATE 5 MG/5 ML VIAL IV PUSH PRN (12:45)
[2017-10-31] MEDS ORDERED: SODIUM BICARBONATE 8.4% SOLN 50 MEQ/50 ML VIAL IV PUSH PRN ×2 (12:45)
--- NOTE | 2017-10-31 13:03 | PD.OP ---
cc: Marlyn Newby MD; Wyatt Cardozo MD Operative Report Date of Surgery: Oct 31, 2017 Preoperative Diagnosis: Postoperative Diagnosis: Procedure: 1. Urgent Off-pump Coronary Artery Bypass Grafting x 3 with Left Internal Mammary Artery (PATRICK) to the Left Anterior Descending (LAD), reverse saphenous vein graft to the Posterior Descending Artery (RPDA) of the Right Coronary Artery, reverse saphenous vein graft to the Obtuse Marginal (OM1) branch of the Left circumflex artery 2. Left Leg Endoscopic Vein [place] 3. Ultrasound guided Dissection of the Coronary Arteries 4. Intraoperative Vein Mapping Surgeon: Marlyn Newby Computer Technical Support Specialist(s): Meg Goldman Operation and Findings: PREPROCEDURE DIAGNOSES 1. Multi-Vessel Coronary Artery Disease. 2. Acute Myocardial Infarction (NSTEMI) 3. Diabetes mellitus POSTPROCEDURE DIAGNOSES 1. Multi-Vessel Coronary Artery Disease. 2. Acute Myocardial Infarction (NSTEMI) 3. Diabetes mellitus 4. Deeply Intramyocardial Vessels 5. Healed Sternal Fracture with densely Adherent and non-usable PATRICK SURGICAL PROCEDURE 1. Urgent Off-pump Coronary Artery Bypass Grafting x 3 with Left Internal Mammary Artery (PATRICK) to the Left Anterior Descending (LAD), reverse saphenous vein graft to the Posterior Descending Artery (RPDA) of the Right Coronary Artery, reverse saphenous vein graft to the Obtuse Marginal (OM1) branch of the Left circumflex artery 2. Left Leg Endoscopic Vein [place] 3. Ultrasound guided Dissection of the Coronary Arteries 4. Intraoperative Vein Mapping SURGEON Marlyn Newby MD DIGESTION OPERATOR BISMARK Oro PA-C ANESTHESIA General endotracheal INSIDE SALES TERRITORY MANAGER TRACEY Coffman MD PREPARATION ChloraPrep. COUNTS Needle, sponge, and instrument counts were correct. DRAINS Two 32-Citizen Of [place] mediastinal tubes. COMPLICATIONS None. INDICATIONS FOR PROCEDURE The patient is a 57-year-old presenting with chest pain and NSTEMI. He is being brought to the operating room for urgent surgical revascularization therapy. PROCEDURE Patient was brought to the operating room and placed supine on the OR table. Following the induction of adequate general endotracheal anesthesia and placement of appropriate monitoring devices, intraoperative vein mapping was performed which revealed good caliber conduit in both lower extremities. The patient was prepped and draped in standard sterile fashion. Next, 2500 units of intravenous heparin was given. The left greater saphenous vein was harvested endoscopically from the thigh. This appeared to be a useable-caliber conduit. Simultaneously, a median sternotomy was performed and the left internal mammary artery was attempted to be harvest. It appeared that he had a healed sternal fracture where the PATRICK was densely adherent to the sternum and I was unable to dissect it off the posterior sternal table without intimal injuries. At this point the MONA was harvested as a pedicle. There were similar adhesions at the same site on the right as well, but not as dense. With careful dissection, the MONA was successfully harvested. The patient was systemically heparinized and anticoagulation monitored by serial ACT measurements. The right internal mammary artery had good pulsatile flow in it and was a decent-caliber conduit. The pericardium was then divided in the midline, the cradle created and targets analyzed. At this point, all anastomoses were performed in a beating-heart fashion using the Maquet stabilizing system. His coronary arteries were deeply intramyocardial and were identified and dissected using the hand-held ultrasound probe. The RSVG segment was anastomosed to the RPDA (1.25 mm) in an end-to-side fashion using a running 7-0 Prolene. The proximal and mid RCA as well as the entire RPDA was very diffusely and heavily calcified. The next segment was anastomosed to the OM branch of the LCX in an end-to-side fashion using a 7-0 Prolene in a running fashion. The right internal mammary artery was then anastomosed to the distal LAD (2 mm) in an end-to-side fashion using 7-0 Prolene.The proximal anastomoses were then constructed to the ascending aorta in a running manner using 6-0 Prolene. All anastomotic sites were inspected and appeared to be hemostatic and patent. Protamine solution was given. Strict hemostasis was assured. The closure was undertaken. 2 chest tubes were placed. The pericardium was reapproximated in the midline. The sternum was approximated using sternal wires. The muscular and fascial layer were then closed in 3 layers. The endoscopic vein harvest site was closed in 2 layers. The patient tolerated the procedure well and was transferred to [facility] in critical but stable condition. Marlyn Newby MD Oct 31, 2017 13:03
[2017-10-31] MEDS ORDERED: Post-op Orders (for Pharmacy) OTHER ONE (13:13)
[2017-10-31] MEDS ORDERED: fentaNYL CITRATE 1000 MCG/20 ML VIAL ONE (13:29)
[2017-10-31] MEDS ORDERED: MIDAZOLAM HCL 2 MG/2 ML VIAL ONE ×2 (13:29)
--- NOTE | 2017-10-31 14:14 | RADRPT ---
EXAM DATE/TIME: 10/31/2017 13:23 [facility] COMPARISON: CHEST SINGLE AP, October 28, 2017, 12:47. INDICATIONS : Post CABG. MEDICAL HISTORY : COPD. Kidney stones. Diabetes. SURGICAL HISTORY : Cholecystectomy. CABG. ENCOUNTER: Subsequent ACUITY: 1 day PAIN SCORE: Non-responsive. LOCATION: Bilateral chest FINDINGS: There is a mediastinal drain, chest tube, and endotracheal tube and a right jugular central line all are in good position. The patient is post median sternotomy. The lungs are clear. CONCLUSION: 1. Stable postoperative chest. Stef Pulido MD on October 31, 2017 at 14:11 Board Certified Radiologist. This report was verified electronically.
[2017-10-31] MEDS: ACETAMINOPHEN 1000 MG/100 ML 100 ML IV SCH ×2 (14:31→21:00)
[2017-10-31] MEDS: ceFAZolin 2 GM PREMIX 50 ML IV SCH (14:52)
[2017-10-31] MEDS ORDERED: RASS Change Order XX ONE (15:00)
[2017-10-31] MEDS: RESP: ALBUTEROL 2.5 MG/IPRATROPIUM 0.5 MG NEB (SCH) NEB ×2 (15:30→21:01)
[2017-10-31] MEDS: KETOROLAC TROMETHAMINE 30 MG/ML (IVP) VIAL IV PUSH PRN (17:03)
[2017-10-31] MEDS: AMIODARONE 200 MG TAB PO SCH (21:00)
[2017-10-31] MEDS: SODIUM CHLORIDE 0.9% FLUSH 10 ML FLUSH IV FLUSH SCH (21:00)
[2017-10-31] MEDS: ZOLPIDEM TARTRATE 10 MG TAB PO PRN (22:48)
[2017-11-01] VITALS (16 sets, daily range): BP systolic 111–129; BP diastolic 56–71; PULSE 82–102; RESP 12–18; TEMP 98–99.2; O2SAT 93–98
[2017-11-01] MEDS: ACETAMINOPHEN 1000 MG/100 ML 100 ML IV SCH ×2 (03:00→10:45)
[2017-11-01] MEDS: RESP: ALBUTEROL 2.5 MG/IPRATROPIUM 0.5 MG NEB (SCH) NEB ×4 (03:23→19:51)
[2017-11-01 04:35] LABS: HEMOGLOBIN 12.7 GM/DL (13.0-17.0); MEAN CELL VOLUME 87.1 FL (80.0-100.0); MEAN CORPUSCULAR HEMOGLOBIN 29.8 PG (27.0-34.0); MEAN CORPUSCULAR HGB CONC 34.2 % (32.0-36.0); MEAN PLATELET VOLUME 7.6 FL (7.0-11.0); PLATELET COUNT 155 TH/MM3 (150-450); RED BLOOD COUNT 4.25 MIL/MM3 (4.50-5.90); RED CELL DISTRIBUTION WIDTH 14.6 % (11.6-17.2); WHITE BLOOD COUNT 8.8 TH/MM3 (4.0-11.0)
--- NOTE | 2017-11-01 04:56 | RADRPT ---
EXAM DATE/TIME: 11/01/2017 03:44 [facility] COMPARISON: CHEST SINGLE AP, October 31, 2017, 13:23. INDICATIONS : Shortness of breath, possible pneumothorax. MEDICAL HISTORY : Chronic obstructive pulmonary disease. Renal calculi. Diabetes SURGICAL HISTORY : CABG. Cholecystectomy. ENCOUNTER: Subsequent ACUITY: 2 days PAIN SCORE: Non-responsive. LOCATION: Bilateral chest FINDINGS: The patient is status post sternotomy. There is a right chest tube and mediastinal drain in place. A pneumothorax is not seen. There is a right internal jugular central line. The heart size is normal. T here is increased density at the left base. Right lung is clear. CONCLUSION: Left lower lobe consolidation or atelectasis. Fawad Angulo MD on November 01, 2017 at 4:54 Board Certified Radiologist. This report was verified electronically.
[2017-11-01 05:03] LABS: BICARBONATE 24.2 MEQ/L (21.0-32.0); CALCIUM 7.9 MG/DL (8.5-10.1); CREATININE 0.68 MG/DL (0.60-1.30)
[2017-11-01] MEDS: KETOROLAC TROMETHAMINE 30 MG/ML (IVP) VIAL IV PUSH PRN ×4 (05:35→23:12)
[2017-11-01] MEDS: PANTOPRAZOLE SOD 40 MG DELAYED RELEASE TAB PO SCH (05:35)
[2017-11-01] MEDS: SODIUM CHLORIDE 0.9% FLUSH 10 ML FLUSH IV FLUSH SCH ×2 (09:00→20:55)
[2017-11-01] MEDS ORDERED: CALCIUM CHLORIDE INJ 1 GM in SODIUM CHLORIDE 0.9% INJ 100 ML IV ONE (09:00)
[2017-11-01] MEDS: ACETAMINOPHEN/HYDROcodone 325 MG/5 MG TAB PO PRN ×3 (09:54→23:23)
[2017-11-01] MEDS: ceFAZolin 2 GM PREMIX 50 ML IV SCH ×4 (10:45→23:13)
[2017-11-01] MEDS: ASPIRIN 81 MG CHEW TAB PO SCH (10:46)
[2017-11-01] MEDS: CLOPIDOGREL 75 MG TAB PO SCH (10:46)
[2017-11-01] MEDS: AMIODARONE 200 MG TAB PO SCH ×2 (10:46→20:54)
[2017-11-01] MEDS ORDERED: SOD PHOSPHATE/SOD BIPHOSPHATE (ADULT) ENEMA 133ML RECTAL PRN (11:15)
[2017-11-01] MEDS ORDERED: BISACODYL 10 MG SUPP RECTAL PRN (11:15)
[2017-11-01] MEDS: DOCUSATE SODIUM 100 MG CAP PO SCH ×2 (11:15→20:54)
[2017-11-01] MEDS ORDERED: GLUCAGON 1 MG/ML VIAL OTHER PRN (11:15)
[2017-11-01] MEDS: COLCHICINE 0.6 MG TAB PO SCH ×2 (11:15→21:00)
[2017-11-01] MEDS ORDERED: ZOLPIDEM TARTRATE 10 MG TAB PO PRN (11:15)
[2017-11-01] MEDS ORDERED: DEXTROSE 50% IN WATER 50 ML VIAL(D50) IV PUSH PRN (11:15)
[2017-11-01] MEDS ORDERED: INSULIN DETEMIR 100 UNITS/ML VIAL SQ ONE (11:15)
[2017-11-01] MEDS ORDERED: PILL SPLITTER OTHER PRN (12:00)
--- NOTE | 2017-11-01 13:43 | PD.CAR.PN ---
CVT Progress Note Subjective/Hospital Course: 57-year-old male, patient of Dr. Bailey, Dr. Cardozo was admitted on the 14th waking up with some chest discomfort, had some sharp epigastric pain. He pointed to the epigastric area. He had no associated symptoms of nausea, vomiting, shortness of breath or diaphoresis. The pain came and waxed and waned for approximately an hour. It hurt to take a deep breath. He denied having any similar pain like this in the past. He states he is basically very active and uses a treadmill. Actually got on the treadmill hoping that it would resolve. The discomfort worsened while he was on the treadmill so he stopped. He notified his son who is a medical student in [place] who instructed his father to go to the emergency department for evaluation. The patient presented troponins that were negative x3. He did undergo exercise stress test where he had some ST depression noted at peak of exercise. Diffuse ST depression approximately 2 mm. It was a possible false positive. The patient underwent cardiac cath today by Dr. Cardozo for the unstable angina. Stress test was apparently an intermediate risk. The proximal LAD had a 70% lesion. The diagonal had a 90% lesion. The circ had 80%. The OM 100%. The RCA 99%. We were consulted for possible coronary artery bypass grafting. in the midst of his evaluation it was however found that his lipase was 812 which required further workup and evaluation and this was discussed with Dr. Bhagat. His repeat lipase was 239>203 , normal amylase and LFT, lipid panel noted , no significant HLP PMH: Diabetes mellitus type 2, Questionable hyperlipidemia. The patient states that he takes medication periodically. Does not take aspirin on a regular basis, history of kidney stone surgery to include lithotripsy, Cholecystectomy 10/30 pt remains pain free now rescheduled for surgery in am 10/31: 1. Urgent Off-pump Coronary Artery Bypass Grafting x 3 with Left Internal Mammary Artery (PATRICK) to the Left Anterior Descending (LAD), reverse saphenous vein graft to the Posterior Descending Artery (RPDA) of the Right Coronary Artery, reverse saphenous vein graft to the Obtuse Marginal (OM1) branch of the Left circumflex artery 2. Left Leg Endoscopic Vein [place] 3. Ultrasound guided Dissection of the Coronary Arteries crystalloid 2100cc, cell saver 670cc extubated after surgery 11/01 remains in NSR, will start low dose BB wean 02 as tolerated, needs aggressive pulm toileting OOB ambulate , resume po diabetic meds will transfer to stepdown Objective: GENERAL: sleepy , but alert and oriented SKIN: Warm and dry. prevena dressing to chest , yulisa wrap to left leg HEAD: Normocephalic. EYES: No scleral icterus. No injection or drainage. NECK: Supple, trachea midline. No JVD or lymphadenopathy. CARDIOVASCULAR: Regular rate and rhythm without murmurs, gallops, or rubs. RESPIRATORY: Breath sounds equal bilaterally. No accessory muscle use. diminished in the bases , chest tube to wall suction, no air leak , drained 210cc/ 12 hrs GASTROINTESTINAL: Abdomen soft, non-tender, nondistended. MUSCULOSKELETAL: No cyanosis, or edema. BACK: Nontender without obvious deformity. No CVA tenderness. Vital Signs Date Time Temp Pulse Resp B/P (MAP) Pulse Ox O2 Delivery O2 Flow Rate FiO2 11/01/17 11:42 16 11/01/17 11:42 16 11/01/17 08:00 97 Nasal Cannula 3.00 11/01/17 07:44 97 Nasal Cannula 3.00 11/01/17 07:00 98.0 83 18 128/56 (80) 97 111/64 (80) 11/01/17 07:00 82 11/01/17 04:00 96 Nasal Cannula 4.00 11/01/17 03:30 12 11/01/17 03:00 89 11/01/17 03:00 98.1 89 12 118/65 (82) 98 124/56 (78) 11/01/17 00:00 97 Nasal Cannula 4.00 10/31/17 23:00 98.3 87 12 97/56 (70) 97 136/79 (98) 10/31/17 23:00 81 10/31/17 21:04 98 Nasal Cannula 3.00 10/31/17 20:00 98 Nasal Cannula 4.00 10/31/17 19:00 98.0 81 12 109/69 (82) 99 106/54 (71) 10/31/17 19:00 81 10/31/17 18:04 87 10/31/17 17:37 20 10/31/17 17:06 87 10/31/17 16:12 98.5 10/31/17 16:10 99 Nasal Cannula 5.00 10/31/17 16:09 79 10/31/17 15:19 98 Nasal Cannula 5 10/31/17 15:19 98 Nasal Cannula 5.00 10/31/17 15:03 98.4 77 20 111/63 (79) 99 10/31/17 15:02 75 10/31/17 14:04 79 10/31/17 14:00 99 40 10/31/17 13:56 50 10/31/17 13:56 99 Mechanical Ventilator 50 10/31/17 13:42 98.3 80 12 137/91 (106) 99 10/31/17 13:42 78 10/31/17 13:26 98.3 10/31/17 13:24 87 150/60 Labs: Laboratory Tests Test 11/01/17 04:20 White Blood Count 8.8 TH/MM3 (4.0-11.0) Red Blood Count 4.25 MIL/MM3 (4.50-5.90) Hemoglobin 12.7 GM/DL (13.0-17.0) Hematocrit 37.0 % (39.0-51.0) Mean Corpuscular Volume 87.1 FL (80.0-100.0) Mean Corpuscular Hemoglobin 29.8 PG (27.0-34.0) Mean Corpuscular Hemoglobin Concent 34.2 % (32.0-36.0) Red Cell Distribution Width 14.6 % (11.6-17.2) Platelet Count 155 TH/MM3 (150-450) Mean Platelet Volume 7.6 FL (7.0-11.0) Blood Urea Nitrogen 12 MG/DL (7-18) Creatinine 0.68 MG/DL (0.60-1.30) Random Glucose 116 MG/DL (74-106) Calcium Level 7.9 MG/DL (8.5-10.1) Magnesium Level 2.0 MG/DL (1.5-2.5) Sodium Level 139 MEQ/L (136-145) Potassium Level 4.0 MEQ/L (3.5-5.1) Chloride Level 108 MEQ/L (98-107) Carbon Dioxide Level 24.2 MEQ/L (21.0-32.0) Anion Gap 7 MEQ/L (5-15) Estimat Glomerular Filtration Rate 121 ML/MIN (>89) Result Diagram: 11/01/1741911/01/17419 Telemetry: NSR (1) CAD (coronary artery disease) Plan: on ASA, statin , plavix , amiodarone and BB eval for possible diuresis in am OOB, PT CM to eval for HHC (2) Diabetes mellitus type 2, noninsulin dependent Plan: on insulin ss , resume home meds (3) Chest pain in adult Cindy Duval Nov 01, 2017 13:43
[2017-11-01] MEDS: GLIMEPIRIDE 4 MG TAB PO SCH (16:00)
[2017-11-01] MEDS: INSULIN ASPART SUPPLEMENTAL SCALE SQ SCH ×3 (17:00→23:13)
[2017-11-01] MEDS: metFORMIN HCL 500 MG TAB PO SCH (18:00)
[2017-11-01] MEDS: SENNOSIDES 8.6 MG TAB PO SCH (20:54)
[2017-11-01] MEDS: METOPROLOL TARTRATE 25 MG TAB PO SCH (20:55)
[2017-11-01] MEDS: ATORVASTATIN 40 MG TAB PO SCH (20:55)
--- NOTE | 2017-11-01 21:59 | EKG ---
Date Performed: 11/01/2017 Time Performed: 06:18:54 PTAGE: 57 years EKG: CONSIDER ACUTE ST ELEVATION AL Sinus rhythm Lateral ST elevation, CONSIDER ACUTE INFARCT Abnormal ECG PREVIOUS TRACING : 10/28/2017 18.02 DOCTOR: Bonifacio Jama Interpretating Date/Time 11/01/2017 21:57:30
[2017-11-02] VITALS (31 sets, daily range): BP systolic 99–134; BP diastolic 57–73; PULSE 64–90; RESP 16–19; TEMP 98–99.9; O2SAT 91–95
[2017-11-02] MEDS: ACETAMINOPHEN/HYDROcodone 325 MG/5 MG TAB PO PRN ×2 (02:50→09:25)
[2017-11-02] MEDS: INSULIN ASPART SUPPLEMENTAL SCALE SQ SCH ×5 (02:50→21:18)
[2017-11-02] MEDS: RESP: ALBUTEROL 2.5 MG/IPRATROPIUM 0.5 MG NEB (SCH) NEB ×6 (03:09→22:00)
[2017-11-02 05:08] LABS: BASOPHIL % 0.4 % (0.0-2.0); EOSINOPHIL # 0.1 TH/MM3 (0-0.4); EOSINOPHIL % 1.4 % (0.0-4.0); HEMATOCRIT 33.2 % (39.0-51.0); HEMOGLOBIN 11.1 GM/DL (13.0-17.0); LYMPH % 17.3 % (9.0-44.0); LYMPHOCYTE # 1.5 TH/MM3 (1.0-4.8); MEAN CELL VOLUME 88.4 FL (80.0-100.0); MEAN CORPUSCULAR HEMOGLOBIN 29.7 PG (27.0-34.0); MEAN CORPUSCULAR HGB CONC 33.6 % (32.0-36.0); MEAN PLATELET VOLUME 8.2 FL (7.0-11.0); MONO % 9.6 % (0.0-8.0); MONOCYTE # 0.8 TH/MM3 (0-0.9); NEUT % 71.3 % (16.0-70.0); PLATELET COUNT 139 TH/MM3 (150-450); RED BLOOD COUNT 3.75 MIL/MM3 (4.50-5.90); RED CELL DISTRIBUTION WIDTH 14.4 % (11.6-17.2); WHITE BLOOD COUNT 8.5 TH/MM3 (4.0-11.0)
[2017-11-02 05:33] LABS: CALCIUM 8.6 MG/DL (8.5-10.1); CREATININE 0.91 MG/DL (0.60-1.30); MAGNESIUM 2.1 MG/DL (1.5-2.5)
[2017-11-02] MEDS: PANTOPRAZOLE SOD 40 MG DELAYED RELEASE TAB PO SCH (05:53)
[2017-11-02] MEDS: KETOROLAC TROMETHAMINE 30 MG/ML (IVP) VIAL IV PUSH PRN (05:53)
[2017-11-02] MEDS: COLCHICINE 0.6 MG TAB PO SCH (09:00)
[2017-11-02] MEDS: POLYETHYLENE GLYCOL 17 GM PKG PO SCH (09:00)
[2017-11-02] MEDS: SODIUM CHLORIDE 0.9% FLUSH 10 ML FLUSH IV FLUSH SCH ×2 (09:00→21:17)
[2017-11-02] MEDS: MAGNESIUM HYDROXIDE SUSP 30 ML CUP PO SCH (09:00)
[2017-11-02] MEDS: METOPROLOL TARTRATE 25 MG TAB PO SCH ×2 (09:25→21:17)
[2017-11-02] MEDS: DOCUSATE SODIUM 100 MG CAP PO SCH ×2 (09:25→21:17)
[2017-11-02] MEDS: CLOPIDOGREL 75 MG TAB PO SCH (09:25)
[2017-11-02] MEDS: MULTIVITAMINS/MINERALS THERAPEUTIC TAB PO SCH (09:25)
[2017-11-02] MEDS: metFORMIN HCL 500 MG TAB PO SCH ×2 (09:25→17:54)
[2017-11-02] MEDS: AMIODARONE 200 MG TAB PO SCH ×2 (09:25→21:16)
[2017-11-02] MEDS: ASPIRIN 81 MG CHEW TAB PO SCH (09:26)
[2017-11-02] MEDS: GLIMEPIRIDE 4 MG TAB PO SCH ×2 (09:30→15:58)
--- NOTE | 2017-11-02 09:34 | PD.CAR.PN ---
CVT Progress Note Subjective/Hospital Course: 57-year-old male, patient of Dr. Bailey, Dr. Cardozo was admitted on the 14th waking up with some chest discomfort, had some sharp epigastric pain. He pointed to the epigastric area. He had no associated symptoms of nausea, vomiting, shortness of breath or diaphoresis. The pain came and waxed and waned for approximately an hour. It hurt to take a deep breath. He denied having any similar pain like this in the past. He states he is basically very active and uses a treadmill. Actually got on the treadmill hoping that it would resolve. The discomfort worsened while he was on the treadmill so he stopped. He notified his son who is a medical student in [place] who instructed his father to go to the emergency department for evaluation. The patient presented troponins that were negative x3. He did undergo exercise stress test where he had some ST depression noted at peak of exercise. Diffuse ST depression approximately 2 mm. It was a possible false positive. The patient underwent cardiac cath today by Dr. Cardozo for the unstable angina. Stress test was apparently an intermediate risk. The proximal LAD had a 70% lesion. The diagonal had a 90% lesion. The circ had 80%. The OM 100%. The RCA 99%. We were consulted for possible coronary artery bypass grafting. in the midst of his evaluation it was however found that his lipase was 812 which required further workup and evaluation and this was discussed with Dr. Bhagat. His repeat lipase was 239>203 , normal amylase and LFT, lipid panel noted , no significant HLP PMH: Diabetes mellitus type 2, Questionable hyperlipidemia. The patient states that he takes medication periodically. Does not take aspirin on a regular basis, history of kidney stone surgery to include lithotripsy, Cholecystectomy 10/30 pt remains pain free now rescheduled for surgery in am 10/31: 1. Urgent Off-pump Coronary Artery Bypass Grafting x 3 with Left Internal Mammary Artery (PATRICK) to the Left Anterior Descending (LAD), reverse saphenous vein graft to the Posterior Descending Artery (RPDA) of the Right Coronary Artery, reverse saphenous vein graft to the Obtuse Marginal (OM1) branch of the Left circumflex artery 2. Left Leg Endoscopic Vein [place] 3. Ultrasound guided Dissection of the Coronary Arteries crystalloid 2100cc, cell saver 670cc extubated after surgery 11/01 remains in NSR, will start low dose BB wean 02 as tolerated, needs aggressive pulm toileting OOB ambulate , resume po diabetic meds will transfer to stepdown 11/[address] c/o Insomnia. Takes Clonazepam at home. Will restart prn Discharge planning Objective: Vital Signs Date Time Temp Pulse Resp B/P (MAP) Pulse Ox O2 Delivery O2 Flow Rate FiO2 11/02/17 09:14 92 21 11/02/17 08:32 93 Room Air 11/02/17 08:12 98.3 75 19 119/72 (88) 92 11/02/17 06:00 72 11/02/17 05:09 81 11/02/17 04:00 72 11/02/17 03:00 98.4 82 18 113/64 (80) 93 11/02/17 03:00 93 Nasal Cannula 3.00 11/02/17 03:00 80 11/02/17 02:55 89 Room Air 11/02/17 02:00 90 11/02/17 01:00 78 11/02/17 00:00 80 11/01/17 23:00 93 Nasal Cannula 3.00 11/01/17 23:00 97 11/01/17 23:00 98.1 83 18 121/71 (88) 93 11/01/17 22:55 89 Room Air 11/01/17 22:00 88 11/01/17 21:00 94 11/01/17 20:45 99.2 101 18 121/71 (88) 96 11/01/17 20:45 96 Nasal Cannula 3.00 11/01/17 20:00 102 11/01/17 19:51 96 Nasal Cannula 3.00 11/01/17 19:00 101 11/01/17 18:20 93 Nasal Cannula 3.00 11/01/17 18:00 90 11/01/17 17:00 94 11/01/17 16:00 92 11/01/17 15:01 98.2 91 18 116/67 (83) 93 11/01/17 15:00 94 11/01/17 12:00 97 Nasal Cannula 3.00 11/01/17 12:00 98.4 88 16 129/70 (89) 97 Arterial Line 11/01/17 12:00 85 11/01/17 11:42 16 11/01/17 11:42 16 Labs: Laboratory Tests Test 11/02/17 05:00 White Blood Count 8.5 TH/MM3 (4.0-11.0) Red Blood Count 3.75 MIL/MM3 (4.50-5.90) Hemoglobin 11.1 GM/DL (13.0-17.0) Hematocrit 33.2 % (39.0-51.0) Mean Corpuscular Volume 88.4 FL (80.0-100.0) Mean Corpuscular Hemoglobin 29.7 PG (27.0-34.0) Mean Corpuscular Hemoglobin Concent 33.6 % (32.0-36.0) Red Cell Distribution Width 14.4 % (11.6-17.2) Platelet Count 139 TH/MM3 (150-450) Mean Platelet Volume 8.2 FL (7.0-11.0) Neutrophils (%) (Auto) 71.3 % (16.0-70.0) Lymphocytes (%) (Auto) 17.3 % (9.0-44.0) Monocytes (%) (Auto) 9.6 % (0.0-8.0) Eosinophils (%) (Auto) 1.4 % (0.0-4.0) Basophils (%) (Auto) 0.4 % (0.0-2.0) Neutrophils # (Auto) 6.0 TH/MM3 (1.8-7.7) Lymphocytes # (Auto) 1.5 TH/MM3 (1.0-4.8) Monocytes # (Auto) 0.8 TH/MM3 (0-0.9) Eosinophils # (Auto) 0.1 TH/MM3 (0-0.4) Basophils # (Auto) 0.0 TH/MM3 (0-0.2) CBC Comment DIFF FINAL Differential Comment Blood Urea Nitrogen 17 MG/DL (7-18) Creatinine 0.91 MG/DL (0.60-1.30) Random Glucose 161 MG/DL (74-106) Calcium Level 8.6 MG/DL (8.5-10.1) Magnesium Level 2.1 MG/DL (1.5-2.5) Sodium Level 138 MEQ/L (136-145) Potassium Level 4.0 MEQ/L (3.5-5.1) Chloride Level 104 MEQ/L (98-107) Carbon Dioxide Level 25.0 MEQ/L (21.0-32.0) Anion Gap 9 MEQ/L (5-15) Estimat Glomerular Filtration Rate 86 ML/MIN (>89) Result Diagram: 11/02/17 0500 11/02/17 0500 (1) CAD (coronary artery disease) Plan: on ASA, statin , plavix , amiodarone and BB eval for possible diuresis in am OOB, PT CM to eval for HHC (2) Diabetes mellitus type 2, noninsulin dependent Plan: on insulin ss , resume home meds (3) Chest pain in adult (4) S/P CABG (coronary artery bypass graft) Marlyn Newby MD Nov 02, 2017 09:34
[2017-11-02] MEDS ORDERED: INDOMETHACIN 25 MG CAP PO ONE (16:15)
[2017-11-02] MEDS: INDOMETHACIN 25 MG CAP PO SCH (17:27)
[2017-11-02] MEDS: ACETAMINOPHEN/HYDROcodone 325 MG/7.5 MG TAB PO PRN ×2 (17:54→21:30)
[2017-11-02] MEDS: ATORVASTATIN 40 MG TAB PO SCH (21:17)
[2017-11-02] MEDS: SENNOSIDES 8.6 MG TAB PO SCH (21:17)
[2017-11-03] VITALS (31 sets, daily range): BP systolic 118–139; BP diastolic 67–79; PULSE 64–88; RESP 18; TEMP 97.5–98.4; O2SAT 96–98
[2017-11-03] MEDS ORDERED: FUROSEMIDE 20 MG/2 ML VIAL IV PUSH SCH (01:15)
[2017-11-03] MEDS: RESP: ALBUTEROL 2.5 MG/IPRATROPIUM 0.5 MG NEB (SCH) NEB ×2 (03:10→08:27)
[2017-11-03] MEDS: PANTOPRAZOLE SOD 40 MG DELAYED RELEASE TAB PO SCH (06:11)
[2017-11-03] MEDS: GLIMEPIRIDE 4 MG TAB PO SCH ×2 (07:53→16:51)
[2017-11-03] MEDS: INSULIN ASPART SUPPLEMENTAL SCALE SQ SCH ×4 (09:12→21:06)
[2017-11-03] MEDS: ASPIRIN 81 MG CHEW TAB PO SCH (09:13)
[2017-11-03] MEDS: SODIUM CHLORIDE 0.9% FLUSH 10 ML FLUSH IV FLUSH SCH ×2 (09:13→21:06)
[2017-11-03] MEDS: DOCUSATE SODIUM 100 MG CAP PO SCH ×2 (09:14→21:00)
[2017-11-03] MEDS: INDOMETHACIN 25 MG CAP PO SCH ×3 (09:14→17:35)
[2017-11-03] MEDS: MULTIVITAMINS/MINERALS THERAPEUTIC TAB PO SCH (09:14)
[2017-11-03] MEDS: metFORMIN HCL 500 MG TAB PO SCH ×2 (09:14→17:37)
[2017-11-03] MEDS: METOPROLOL TARTRATE 25 MG TAB PO SCH ×2 (09:14→21:00)
[2017-11-03] MEDS: CLOPIDOGREL 75 MG TAB PO SCH (09:15)
[2017-11-03] MEDS: AMIODARONE 200 MG TAB PO SCH ×2 (09:15→20:59)
[2017-11-03] MEDS: POLYETHYLENE GLYCOL 17 GM PKG PO SCH (09:16)
[2017-11-03] MEDS: ACETAMINOPHEN/HYDROcodone 325 MG/7.5 MG TAB PO PRN (09:16)
[2017-11-03] MEDS: MAGNESIUM HYDROXIDE SUSP 30 ML CUP PO SCH (09:16)
--- NOTE | 2017-11-03 10:26 | PD.CAR.PN ---
CVT Progress Note Subjective/Hospital Course: 57-year-old male, patient of Dr. Bailey, Dr. Cardozo was admitted on the 14th waking up with some chest discomfort, had some sharp epigastric pain. He pointed to the epigastric area. He had no associated symptoms of nausea, vomiting, shortness of breath or diaphoresis. The pain came and waxed and waned for approximately an hour. It hurt to take a deep breath. He denied having any similar pain like this in the past. He states he is basically very active and uses a treadmill. Actually got on the treadmill hoping that it would resolve. The discomfort worsened while he was on the treadmill so he stopped. He notified his son who is a medical student in [place] who instructed his father to go to the emergency department for evaluation. The patient presented troponins that were negative x3. He did undergo exercise stress test where he had some ST depression noted at peak of exercise. Diffuse ST depression approximately 2 mm. It was a possible false positive. The patient underwent cardiac cath today by Dr. Cardozo for the unstable angina. Stress test was apparently an intermediate risk. The proximal LAD had a 70% lesion. The diagonal had a 90% lesion. The circ had 80%. The OM 100%. The RCA 99%. We were consulted for possible coronary artery bypass grafting. in the midst of his evaluation it was however found that his lipase was 812 which required further workup and evaluation and this was discussed with Dr. Bhagat. His repeat lipase was 239>203 , normal amylase and LFT, lipid panel noted , no significant HLP PMH: Diabetes mellitus type 2, Questionable hyperlipidemia. The patient states that he takes medication periodically. Does not take aspirin on a regular basis, history of kidney stone surgery to include lithotripsy, Cholecystectomy 10/30 pt remains pain free now rescheduled for surgery in am 10/31: 1. Urgent Off-pump Coronary Artery Bypass Grafting x 3 with Left Internal Mammary Artery (PATRICK) to the Left Anterior Descending (LAD), reverse saphenous vein graft to the Posterior Descending Artery (RPDA) of the Right Coronary Artery, reverse saphenous vein graft to the Obtuse Marginal (OM1) branch of the Left circumflex artery 2. Left Leg Endoscopic Vein [place] 3. Ultrasound guided Dissection of the Coronary Arteries crystalloid 2100cc, cell saver 670cc extubated after surgery 11/01 remains in NSR, will start low dose BB wean 02 as tolerated, needs aggressive pulm toileting OOB ambulate , resume po diabetic meds will transfer to stepdown 11/[address] c/o Insomnia. Takes Clonazepam at home. Will restart prn Discharge planning 11/03 Doing well D/C CT Likely discharge home tomorrow Objective: Vital Signs Date Time Temp Pulse Resp B/P (MAP) Pulse Ox O2 Delivery O2 Flow Rate FiO2 11/03/17 10:05 74 11/03/17 09:00 80 11/03/17 08:28 98 21 11/03/17 08:00 70 11/03/17 07:37 98.1 68 18 118/69 (85) 96 11/03/17 07:37 96 Room Air 11/03/17 07:00 69 11/03/17 06:00 88 11/03/17 05:00 69 11/03/17 04:00 67 11/03/17 03:45 96 Room Air 11/03/17 03:45 97.5 72 18 127/67 (87) 96 11/03/17 03:00 70 11/03/17 02:00 67 11/03/17 01:00 74 11/03/17 00:00 70 11/02/17 23:30 95 Room Air 11/02/17 23:30 98.0 77 16 120/70 (87) 95 11/02/17 23:00 73 11/02/17 22:00 76 11/02/17 21:00 84 11/02/17 20:45 94 Room Air 11/02/17 20:45 98.6 73 18 125/65 (85) 94 11/02/17 20:00 80 11/02/17 19:00 78 11/02/17 18:00 79 11/02/17 17:52 134/73 (93) 11/02/17 17:00 78 11/02/17 16:00 64 11/02/17 15:15 99.9 81 19 109/58 (75) 92 11/02/17 15:15 92 Room Air 11/02/17 15:00 82 11/02/17 14:09 73 11/02/17 13:01 74 11/02/17 12:08 96 Nasal Cannula 2.00 11/02/17 12:00 70 11/02/17 11:07 98.2 69 99/57 (71) 91 11/02/17 11:00 71 Result Diagram: 11/02/17 0500 11/02/17 0500 (1) CAD (coronary artery disease) Plan: on ASA, statin , plavix , amiodarone and BB eval for possible diuresis in am OOB, PT CM to eval for HHC (2) Diabetes mellitus type 2, noninsulin dependent Plan: on insulin ss , resume home meds (3) Chest pain in adult (4) S/P CABG (coronary artery bypass graft) Marlyn Newby MD Nov 03, 2017 10:26
[2017-11-03] MEDS ORDERED: DIPHENOXYLATE/ATROPINE 2.5 MG/0.025 MG TAB PO PRN (17:15)
[2017-11-03] MEDS: ATORVASTATIN 40 MG TAB PO SCH (20:59)
[2017-11-03] MEDS: SENNOSIDES 8.6 MG TAB PO SCH (21:00)
[2017-11-03] MEDS: clonazePAM 0.5 MG TAB PO PRN ×2 (21:00→23:03)
[2017-11-04] VITALS (12 sets, daily range): BP systolic 105–118; BP diastolic 64–72; PULSE 16–74; RESP 16–17; TEMP 97.8–98.1; O2SAT 96–98
[2017-11-04] MEDS: PANTOPRAZOLE SOD 40 MG DELAYED RELEASE TAB PO SCH (06:52)
[2017-11-04] MEDS: GLIMEPIRIDE 4 MG TAB PO SCH (06:52)
[2017-11-04] MEDS: metFORMIN HCL 500 MG TAB PO SCH (09:31)
[2017-11-04] MEDS: AMIODARONE 200 MG TAB PO SCH (09:31)
[2017-11-04] MEDS: MULTIVITAMINS/MINERALS THERAPEUTIC TAB PO SCH (09:32)
[2017-11-04] MEDS: DOCUSATE SODIUM 100 MG CAP PO SCH (09:32)
[2017-11-04] MEDS: CLOPIDOGREL 75 MG TAB PO SCH (09:34)
[2017-11-04] MEDS: MAGNESIUM HYDROXIDE SUSP 30 ML CUP PO SCH (09:36)
[2017-11-04] MEDS: ASPIRIN 81 MG CHEW TAB PO SCH (09:36)
[2017-11-04] MEDS: POLYETHYLENE GLYCOL 17 GM PKG PO SCH (09:36)
[2017-11-04] MEDS: SODIUM CHLORIDE 0.9% FLUSH 10 ML FLUSH IV FLUSH SCH (09:37)
[2017-11-04] MEDS: INDOMETHACIN 25 MG CAP PO SCH ×2 (09:37→12:48)
[2017-11-04] MEDS: INSULIN ASPART SUPPLEMENTAL SCALE SQ SCH ×2 (09:40→12:45)
[2017-11-04] MEDS: METOPROLOL TARTRATE 25 MG TAB PO SCH (09:42)
[2017-11-04] MEDS ORDERED: ASPI81 PO (11:05)
[2017-11-04] MEDS ORDERED: AMIO200T PO (11:05)
[2017-11-04] MEDS ORDERED: METO25TA3 PO (11:05)
[2017-11-04] MEDS ORDERED: INDO25CA PO (11:05)
[2017-11-04] MEDS ORDERED: CLON.5 PO (11:05)
[2017-11-04] MEDS ORDERED: PLAV75TA29 PO (11:05)
[2017-11-04] MEDS ORDERED: HYDR-3580 PO (11:05)
[2017-11-04] MEDS ORDERED: ATOR40TA16 PO (11:05)
--- NOTE | 2017-11-04 11:07 | HHI.DS ---
Discharge Summary Admission Date Oct 30, 2017 at 11:03 Discharge Date: Nov 04, 2017 Admitting Diagnosis Chest pain (1) CAD (coronary artery disease) ICD Codes: I25.10 - Atherosclerotic heart disease of [place] coronary artery without angina pectoris (2) Unstable angina ICD Codes: I20.0 - Unstable angina Status: Acute (3) Diabetes mellitus type 2, noninsulin dependent ICD Codes: E11.9 - Type 2 diabetes mellitus without complications Status: Chronic (4) Elevated lipase ICD Codes: R74.8 - Abnormal levels of other serum enzymes Status: Acute CBC/BMP: 11/02/17 0500 11/02/17 0500 Significant Findings Laboratory Tests Test 11/02/17 05:00 Red Blood Count 3.75 MIL/MM3 (4.50-5.90) Hemoglobin 11.1 GM/DL (13.0-17.0) Hematocrit 33.2 % (39.0-51.0) Platelet Count 139 TH/MM3 (150-450) Neutrophils (%) (Auto) 71.3 % (16.0-70.0) Monocytes (%) (Auto) 9.6 % (0.0-8.0) Random Glucose 161 MG/DL (74-106) Estimat Glomerular Filtration Rate 86 ML/MIN (>89) Hospital Course 7-year-old male, patient of Dr. Bailey, Dr. Cardozo was admitted on the 14th waking up with some chest discomfort, had some sharp epigastric pain. He pointed to the epigastric area. He had no associated symptoms of nausea, vomiting, shortness of breath or diaphoresis. The pain came and waxed and waned for approximately an hour. It hurt to take a deep breath. He denied having any similar pain like this in the past. He states he is basically very active and uses a treadmill. Actually got on the treadmill hoping that it would resolve. The discomfort worsened while he was on the treadmill so he stopped. He notified his son who is a medical student in [place] who instructed his father to go to the emergency department for evaluation. The patient presented troponins that were negative x3. He did undergo exercise stress test where he had some ST depression noted at peak of exercise. Diffuse ST depression approximately 2 mm. It was a possible false positive. The patient underwent cardiac cath today by Dr. Cardozo for the unstable angina. Stress test was apparently an intermediate risk. The proximal LAD had a 70% lesion. The diagonal had a 90% lesion. The circ had 80%. The OM 100%. The RCA 99%. We were consulted for possible coronary artery bypass grafting. in the midst of his evaluation it was however found that his lipase was 812 which required further workup and evaluation and this was discussed with Dr. Bhagat. His repeat lipase was 239>203 , normal amylase and LFT, lipid panel noted , no significant HLP PMH: Diabetes mellitus type 2, Questionable hyperlipidemia. The patient states that he takes medication periodically. Does not take aspirin on a regular basis, history of kidney stone surgery to include lithotripsy, Cholecystectomy 10/30 pt remains pain free now rescheduled for surgery in am 10/31: 1. Urgent Off-pump Coronary Artery Bypass Grafting x 3 with Left Internal Mammary Artery (PATRICK) to the Left Anterior Descending (LAD), reverse saphenous vein graft to the Posterior Descending Artery (RPDA) of the Right Coronary Artery, reverse saphenous vein graft to the Obtuse Marginal (OM1) branch of the Left circumflex artery 2. Left Leg Endoscopic Vein [place] 3. Ultrasound guided Dissection of the Coronary Arteries crystalloid 2100cc, cell saver 670cc extubated after surgery 11/01 remains in NSR, will start low dose BB wean 02 as tolerated, needs aggressive pulm toileting OOB ambulate , resume po diabetic meds will transfer to stepdown 11/[address] c/o Insomnia. Takes Clonazepam at home. Will restart prn Discharge planning 11/03 Doing well D/C CT Likely discharge home tomorrow 11/04 Discharge home Pt Condition on Discharge: Good Discharge Disposition: Disch w/ Home Health Serv Discharge Instructions DIET: Follow Instructions for: Heart Healthy Diet, Diabetic Diet Activities you can perform: Full Weight Bearing, Shower Only-No Bath, Shaving Activities to avoid: Lifting/Bending, Strenuous Activity, Driving Follow up Referrals: Cardiology - 4 Weeks with Wyatt Cardozo MD PCP Follow-up - 2 Weeks with Venancio Bailey MD Surgical - 2 Weeks with Cindy Duval New Medications: Amiodarone (Amiodarone) 200 Mg Tab 200 MG PO Q12HR for z for 14 Days, #28 TAB Aspirin (Tgt Aspirin) 81 Mg Chw 81 MG PO DAILY for z for 90 Days, EA 9 Refills Atorvastatin (Atorvastatin) 40 Mg Tab 40 MG PO HS for Cholesterol Management for 90 Days, TAB Clonazepam (Klonopin) 0.5 Mg Tab 0.5 MG PO HS PRN for INSOMNIA for 14 Days, TAB Clopidogrel (Plavix) 75 Mg Tab 75 MG PO DAILY for z for 90 Days, #90 TAB 6 Refills Hydrocodone/Acetaminophen (Hydrocodone-Acetamin 7.5-325) 7.5 Mg-325 Mg Tablet 1 TAB PO Q4H PRN for PAIN SCALE 1 TO 10, #60 TAB Indomethacin (Indomethacin) 25 Mg Cap 25 MG PO TID for z for 14 Days, CAP Take with food, milk, or antacids to decrease stomach adverse effects. Metoprolol Tartrate (Metoprolol Tartrate) 25 Mg Tab 12.5 MG PO BID for z for 90 Days, #90 TAB 6 Refills Continued Medications: Empagliflozin (Jardiance) 25 Mg Tab 25 MG PO DAILY for Blood Sugar Management, #30 TAB 0 Refills Glimepiride (Glimepiride) 4 Mg Tab 4 MG PO BIDAC for Blood Sugar Management, #60 TAB 0 Refills Metformin (Metformin) 1,000 Mg Tab 1000 MG PO BIDPC for Blood Sugar Management, #60 TAB 0 Refills Marlyn Newby MD Nov 04, 2017 11:07
[2017-11-04] MEDS ORDERED: WALKER WHEELS/F1 MIS (11:21)
== END 2017-11-04 14:45 | disposition home health service (06) | DRG 234 ==
LOC: NEPE 11:58 → NEDA 13:56 → NEPFCDU 17:26 → HCIS 10-29 11:34 → HCPC 10-29 20:21 → OBSVTOIN 10-30 11:03 → HCIS 10-31 07:10 → HCVI 10-31 14:06 → HCPC 11-01 14:07
PROVIDERS: ADMIT Thoracic Surgery (Cardiothoracic Vascular Surgery); ATTEND Thoracic Surgery (Cardiothoracic Vascular Surgery)
PROC: 4A023N7 Measurement of Cardiac Sampling and Pressure, Left Heart, Percutaneous Approach (ICD-10-PCS; 2017-10-29)
PROC: B2111ZZ Fluoroscopy of Multiple Coronary Arteries using Low Osmolar Contrast (ICD-10-PCS; 2017-10-29)
PROC: B2151ZZ Fluoroscopy of Left Heart using Low Osmolar Contrast (ICD-10-PCS; 2017-10-29)
PROC: 02100Z8 Bypass Coronary Artery, One Artery from Right Internal Mammary, Open Approach (ICD-10-PCS; 2017-10-31)
PROC: 06BQ4ZZ Excision of Left Saphenous Vein, Percutaneous Endoscopic Approach (ICD-10-PCS; 2017-10-31)
PROC: 021109W Bypass Coronary Artery, Two Arteries from Aorta with Autologous Venous Tissue, Open Approach (ICD-10-PCS; principal; 2017-10-31 07:08)
DX: I25.110 Atherosclerotic heart disease of native coronary artery with unstable angina pectoris (principal); J44.9 Chronic obstructive pulmonary disease, unspecified; I10 Essential (primary) hypertension; R00.1 Bradycardia, unspecified; E11.9 Type 2 diabetes mellitus without complications; Z87.442 Personal history of urinary calculi; E78.5 Hyperlipidemia, unspecified; K21.9 Gastro-esophageal reflux disease without esophagitis; F17.210 Nicotine dependence, cigarettes, uncomplicated; G47.00 Insomnia, unspecified; R74.8 Abnormal levels of other serum enzymes; Z79.84 Long term (current) use of oral hypoglycemic drugs
CPT/HCPCS: 36430; 71045; 76937; 80048; 80053; 80061; 81001; 82150; 82550; 82552; 82948; 83036; 83690; 83735; 84484; 85025; 85027; 85610; 85730; 86850; 86900; 86901; 86920; 87641; 93005; 93017; 93306; 93458; 93880; 93970; 93998; 94002; 94010; 94150; 94640; 94664; 94667; 94668; 99285; C1768; C1769; C1893; C9248; G0378; J0131; J0690; J1644; J1815; J1817; J1885; J1940; J2250; J2270; J2405; J2440; J3010; J3370; J3475; J3480; J7040; J7120; P9016; Q9967